=== PATIENT | female | born 1955 | race Caucasian/White ===

== ENCOUNTER 2019-07-15 10:13 | Observation (INO) ==
[2019-07-15] MEDS ORDERED: Naloxone 0.4 MG/ML INJ IVP PRN (13:54)
--- NOTE | 2019-07-15 14:15 | Internal Med History&Physical ---
<Nabil Sommer - Last Filed: 07/15/19 15:29> Date of Encounter: 07/15/19 Time of Encounter: 15:00 Internal Medicine - H&P: HPI History of present illness: Ms. Hutchinson is a 64 year old female Past Med Surg Social Fam HX - Family History Father Living Status: Age at : 70 Cause of : brain cancer Hx Family Cancer: Yes Hx Family Medical Disorders: Yes Internal Medicine - H&P: Meds Albuterol Sulfate [Ventolin Hfa] 2 puff IH Q4H 07/15/19 [History] Aspirin [Adult Aspirin] 81 mg PO DAILY 07/15/19 [History] Atorvastatin [Lipitor] 40 mg PO HS 07/15/19 [History] Carvedilol [Coreg] 12.5 mg PO BID 07/15/19 [History] Clopidogrel [Plavix] 75 mg PO DAILY 07/15/19 [History] Cyclobenzaprine [Flexeril] 10 mg PO HS 07/15/19 [History] Fluticasone/Umeclidin/Vilanter [Trelegy Ellipta 100-62.5-25] 1 puff IH DAILY 07/15/19 [History] Folic Acid 800 mg PO DAILY 07/15/19 [History] Gabapentin [Neurontin] 300 mg PO TID 07/15/19 [History] Ipratropium/Albuterol Neb [Duoneb] 3 ml IH Q4HR PRN 07/15/19 [History] Isosorbide MONOnitrate [Isosorbide Mononitrate ER] 30 mg PO DAILY 07/15/19 [History] Lisinopril [Zestril] 10 mg PO DAILY 07/15/19 [History] Loratadine [Allergy Relief] 10 mg PO DAILY 07/15/19 [History] Meloxicam [Mobic] 7.5 mg PO DAILY 07/15/19 [History] Metformin HCl 1,000 mg PO BID 07/15/19 [History] Multivitamin [Multivitamins] 1 each PO DAILY 07/15/19 [History] SitaGLIPtin [Januvia] 100 mg PO DAILY 07/15/19 [History] Allergy/AdvReac Type Severity Reaction Status Date / Time No Known Allergies Allergy Verified 07/15/19 05:09 All Systems PM: A 10-system review of systems was performed and is negative for pertinent findings except as documented above in the HPI. - Constitutional Vitals: Temp Pulse Resp BP Pulse Ox 98.3 F 115 16 143/61 90 07/15/19 11:24 07/15/19 14:18 07/15/19 14:18 07/15/19 14:18 07/15/19 14:18 - Time Spent With Patient Total time spent is greater than 50% in coordination of care (as documented) at patient's floor/unit and/or counseling patient: - Attending Attestation I saw evaluated and examined this patient and reviewed past medical, family, social histories and objective data including labs, imaging studies and EKG and my medical decision-making was reviewed with the Resident Physician, Coleen Bennett. I agree with the documented findings, disposition and treatment plan as described except to any changes set forth below. We independently had [id number] contact with the patient. 64-year-old female patient with history of coronary artery disease status post stents, COPD and chronic respiratory failure who presented to the ER with complaints of worsening cough, shortness of breath and pleuritic chest pain that has been getting worse especially since 2 AM this morning. She was hospitalized at a different facility earlier this month and discharged home on a steroid taper. It is unclear if she was on antibiotics then. She was seen in [facility] ER today and as her troponins were rising up, she was transferred here for higher level of care. She did receive a dose of Lovenox. For possible non-ST elevation WI. Patient continues to have intermittent pleuritic chest pain worsens with cough. She also describes brownish sputum. Troponins trended up to 0.38 at [place]. We will continue to trend troponins. Telemetry monitoring. Treat for possible non-ST elevation WI with Lovenox. Obtain 2-D echocardiogram. Consult cardiology. Check lipid profile. Also treat patient for COPD exacerbation with bronchodilators. Will use the albuterol plus Spiriva given that patient has persistent tachycardia. Systemic steroids. Azithromycin and O2 supplementation. Past history per medical record shows that she has a history of atrial fibrillation but patient denies this. She is not on any anticoagulation. We will resume her usual home meds. For her diabetes will place her on sliding scale insulin. Monitor blood sugars closely especially as she will be receiving steroids. Adjust insulin regimen accordingly. Patient has high risk for complications. <Coleen Bennett E - Last Filed: 07/15/19 17:07> Date of Encounter: 07/15/19 Internal Medicine - H&P: HPI Chief complaint: Shortness of breath Admitted From: Emergency Dept Plans for Post Hospital Care: Home History of present illness: Ms. Hutchinson is a 64 year old female who is admitted from the ED. Patient states beginning of June she was hospitalized for 3 days for shortness of breath and placed on prednisone. She states she went home and was feeling quite a bit better although needing to use her oxygen continuously at 2 L. The last 2-3 days she had increased shortness of breath increased oxygen demands as well as production that was brown in color. She states that her shortness of breath got so bad last night that she had difficulty ambulance. Patient has a history of WI in 2004, 5 stent placements, coronary artery disease, possible A. fib currently on Coreg, hypertension currently on lisinopril, diabetes on metformin and Januvia, COPD, use of oxygen prior to last hospitalization was 2 L as needed and at night, hypercholesterolemia on atorvastatin. Patient denies any kidney disease or thyroid disease. Patient is currently trying to quit smoking and using a nicotine patch low-dose. Initial troponin 0.0 9 repeat 0.38 and latest troponin 0.90. Patient was given 70 mg of Lovenox in ED. Labs on admission showed white blood cell count of 14.2, hemoglobin 11.8, hematocrit 35.9, platelet count of 303, sodium 129, potassium 4.1, chloride 94, CO2 of 26, BUN of 9, creatinine of 0.54, GFR greater than 60, glucose of 1:30 3 repeat troponin of 0.09, BNP of 68. EKG showed left jugular hypertrophy with IVCD, LAD and secondary repull abnormalities. Repeat EKG ordered. Patient was seen and examined at bedside in moderate distress. She states that her chest pain is only when she coughs and radiates to her back. She denies any abdominal pain, nausea, vomiting, but she does report fever, sweats, chills, shortness of breath, cough, brownish sputum. Patient states multiple relatives with heart disease when asked who patient repl ied everyone. Past Med Surg Social Fam HX - Past Medical History Medical history: asthma, atrial fibrillation, CHF, COPD, diabetes, hy perlipidemia, hypertension, myocardial infarction Psychiatric history: anxiety, depression - Past Surgical History Additional surgical history: lung biospy - Social History Smoking Status: Current every day smoker Smokeless Tobacco Status: No Alcohol use: none Drug use: none All Systems PM: A 10-system review of systems was performed and is negative for pertinent findings except as documented above in the HPI. - Constitutional Constitutional: chills, fatigue, fever(s), no anorexia - EENT Eyes: no change in vision - Cardiovascular Cardiovascular ROS IM: chest pain (With cough), dyspnea, no palpitations, no syncope - Respiratory Respiratory: cough, excessive phlegm production (The last 3 days), change in phlegm color (Brownish) - Gastrointestinal Gastrointestinal: no abdominal pain, no nausea, no vomiting - Genitourinary Genitourinary: no urinary frequency, no urinary hesitancy, no urinary urgency - Musculoskeletal Musculoskeletal ROS IM: no muscle weakness, no myalgias - Integumentary Integumentary IM: no new lesions, no rash - Neurological Neurological ROS: no confusion, no frequent falls, no headache(s) - Constitutional Vitals: Temp Pulse Resp BP Pulse Ox 98.3 F 117 22 144/78 93 07/15/19 11:24 07/15/19 11:24 07/15/19 11:24 07/15/19 11:24 07/15/19 11:24 Exam: General: AAO 3, answers questions appropriately, moderate distress Head: normocephalic, atraumatic Eyes: HERNANDO, no icterus Cardio: RRR, no murmurs, rubs, or gallops Respiratory: End expiratory wheeze noted throughout, no rhonchi or rales Abd: normal bowel sounds, no gaurding or rigidity Extremities: no pedal edema, pulses equal bilaterally, warm Neuro: CN II-XII no focal deficit Psych: normal mood, normal affect Skin: warm, dry, intact - Assessment and Plan (1) Non-STEMI (non-ST elevated myocardial infarction) Current Visit: Yes Status: Acute Assessment and plan: Troponin increased from 0.09-0.38-0.90 EKG showed no changes at ED Repeat EKG ordered Echocardiogram ordered Cardiology has been consulted Lovenox started 70 mg twice daily Continue to monitor Continue to use telemetry (2) Hypertension Current Visit: Yes Status: Chronic Assessment and plan: Currently well controlled on current medications Continue Coreg, Lisinopril, Imdur Qualifiers: Hypertension type: essential hypertension Qualified Code(s): I10 - Essential (primary) hypertension (3) Hypercholesterolemia Current Visit: Yes Status: Chronic Assessment and plan: Continue home atorvastatin (4) Tobacco dependence Current Visit: Yes Status: Acute Assessment and plan: Patient down to 1-4 cigarettes per day Nicotine patch if needed for cravings (5) History of WI (myocardial infarction) Current Visit: Yes Status: Acute Assessment and plan: Previous WI in 2004 History of 5 stents placed (6) Acute exacerbation of chronic obstructive airways disease Current Visit: No Status: Acute Assessment and plan: COPD exacerbation Likely secondary to bronchitis Prednisone 40 mg by mouth daily for 5 days Azithromycin for 5 days Oxygen as needed to keep oxygen saturation above 88% We have albuterol every 4 hours, Spiriva once daily Continue to monitor (7) Elevated troponin Current Visit: No Status: Acute Assessment and plan: Likely secondary to NSTEMI Please see NSTEMI (8) Hyponatremia Current Visit: Yes Status: Acute Assessment and plan: Likely secondary to dehydration Start IV normal saline 75 mL per hour for 1 back Continue to monitor electrolytes and replace as necessary (9) Diabetes mellitus Current Visit: Yes Status: Chronic Assessment and plan: Low-dose sliding scale insulin Hold metformin and Januvia Qualifiers: Diabetes mellitus type: type 2 Diabetes mellitus group home insulin use: 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
[2019-07-15] MEDS ORDERED: Ipratropium/Albuterol Neb 3 ML IH PRN (14:23)
[2019-07-15] MEDS ORDERED: 0.9 % Sodium Chloride 1,000 ML IVC SCH (15:15)
[2019-07-15] MEDS ORDERED: Levalbuterol Neb 0.63 MG/3 ML ONE (15:58)
[2019-07-15] MEDS: Levalbuterol Neb 0.63 MG/3 ML IH SCH ×2 (16:04→21:44)
[2019-07-15] MEDS ORDERED: Dextrose Gel 15 GM/37.5 ML TUBE PO PRN ×2 (17:08)
[2019-07-15] MEDS ORDERED: D5% in Water 1,000 ML IVC PRN (17:08)
[2019-07-15] MEDS ORDERED: *HR* Dextrose 50 % in Water (Syg) 50 ML SYRINGE IVP PRN (17:08)
[2019-07-15 17:30] LABS: Estimated Average Glucose 154 mg/dl
[2019-07-15] MEDS: Azithromycin 250 MG TABLET PO SCH (18:01)
[2019-07-15] MEDS: *HR* Enoxaparin 80 MG/0.8 ML SYRINGE SQ SCH (18:16)
[2019-07-15] MEDS: Gabapentin 300 MG CAPSULE PO SCH (20:00)
[2019-07-15] MEDS ORDERED: Perflutren Lipid Microsphere 1.3 ML in 0.9 % Sodium Chloride 8.7 ML IVP ONE (21:00)
[2019-07-15] MEDS: Insulin LISPRO 300 UNITS/3 ML VIAL SQ SCH (21:27)
[2019-07-16] MEDS: Insulin LISPRO 300 UNITS/3 ML VIAL SQ SCH ×4 (01:30→21:53)
[2019-07-16 02:14] LABS: Basophils % 0.1 %; Eosinophils # 0.1 K/mcL (0.0-0.6); Eosinophils % 0.7 %; Hematocrit 33.9 % (35.3-44.9); Hemoglobin 11.2 g/dL (11.5-15.4); Immature Granulocytes % 0.3 % (0-4); Lymphocytes # 1.7 K/mcL (0.6-4.6); Lymphocytes % 18.7 %; Mean Corpuscular Hemoglobin 29.5 pg (28.0-33.3); Mean Corpuscular Volume 89.2 fL (83.0-100.0); Mean Platelet Volume 8.8 fL (9.4-12.4); Monocytes # 0.9 K/mcL (0.0-1.3); Neutrophils # 6.3 K/mcL (1.6-8.9); Platelet Count 303 K/mcL (140-400); Segmented Neutrophils % 70.2 %
[2019-07-16 02:35] LABS: Alanine Aminotransferase 13 Units/L (7-52); Albumin 3.9 g/dL (3.5-5.7); Albumin/Globulin Ratio 1.6 (1.1-2.2); Alkaline Phosphatase 44 Units/L (34-104); Aspartate Amino Transferase 17 Units/L (13-39); BUN/Creatinine Ratio 20 (6-26); Bilirubin,Total 0.3 mg/dL (0.3-1.0); Blood Urea Nitrogen 11 mg/dL (8-23); Calcium 9.1 mg/dL (8.6-10.3); Carbon Dioxide 26 mEq/L (23-29); Chloride 99 mEq/L (98-107); Cholesterol 198 mg/dL (< 200); Globulin 2.4 g/dL (2.4-3.5); Glucose 131 mg/dL (70-105); HDL Cholesterol 40 mg/dL (40-59); LDL Cholesterol,Calculated 120 mg/dL (0-99); Osmolality,Calculated 279 (280-300); Potassium 3.9 mEq/L (3.5-5.1); Sodium 134 mEq/L (136-145); Total Protein 6.3 g/dL (6.4-8.9); Triglycerides 189 mg/dL (< 150); eGFR For African Americans > 60 (> 60); eGFR For Non-African Americans > 60 (> 60)
[2019-07-16] MEDS: Levalbuterol Neb 0.63 MG/3 ML IH SCH ×4 (03:35→21:42)
[2019-07-16] MEDS: *HR* Enoxaparin 80 MG/0.8 ML SYRINGE SQ SCH ×2 (06:41→21:53)
--- NOTE | 2019-07-16 09:45 | Cardiology Consult Note ---
Date of Encounter: 07/16/19 Time of Encounter: 08:15 Assessment and Plan (1) Non-STEMI (non-ST elevated myocardial infarction) Current Visit: Yes Status: Acute Troponins 0.9, 1.05, 0.68. On therapeutic Lovenox. Denies CP at time of eval. States CP is aching, left sided and radiates to her back when coughing, subsides when not coughing. Poor historian, cannot recall information regarding previous reported cardiac stents. Echo 07/15/19: LVEF 45%, moderate AR, apex wall hypokinetic. No previous echo to compare. EKG: NSR with non-specific ST-T changes in lateral leads. Given peak troponin of 1.05, would recommend [facility] tomorrow. (2) Coronary artery disease Current Visit: Yes Status: Chronic Per patient, has a history of multiple cardiac stents but is unclear where/when. 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 PPD smoker, has gradually decreased over the past month. Last cigarette was Monday. Ordered home Nicotine patch dose. Encouraged continued cessation. Continue current medications: ASA, Plavix, Lipitor, Coreg, Lisinopril & Imdur. See above for complete plan. Qualifiers: Coronary Disease-Associated Artery/Lesion type: [place] artery [place] vs. transplanted heart: [place] heart Associated angina: with unspecified angina Qualified Code(s): I25.119 - Atherosclerotic heart disease of [place] coronary artery with unspecified angina pectoris (3) Cardiomyopathy Current Visit: Yes Status: Acute Given elevated troponin and reported hx of CAD, suspect ischemic. EF 45% per echo this admission, no previous study to compare. Plan and medications as above. Qualifiers: Cardiomyopathy type: unspecified Qualified Code(s): I42.9 - Cardiomyopathy, unspecified Discussion w patient/family: The assessment and plan as outlined above was discussed with the patient and/or family members who expressed understanding and agreement. All questions were answered. Thank you for involving us in the care of your patient. Please call with any questions. Will discuss above assessment and plan as above with Dr. Booth and makes changes as appropriate. History of Present Illness Consult date: 07/16/19 Consult reason: NSTEMI History of present illness: Ms. Hutchinson is a 64 year old female with PMH of CAD, DM and COPD admitted from the ED yesterday for worsening cough, SOB and pleuritic CP. 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 No records to review. Reports she was hospitalized for 3 days for SOB earlier this month and discharged on prednisone and O2. She states she went home and was feeling quite a bit better although needing to use her oxygen continuously at 2-4L. Was smoking PPD up until last week, is now using Nicotine patches, last cigarette Monday. The last 2-3 days she had increased SOB and sputum production. States that her SOB got so bad last night that she had difficulty calling the ambulance, feels it is due to "overd oing it in the garden." Reports her CP occurs when coughing, is left sided and travels to her back and goes away when she is done coughing. Denies N/V and edema. Past Med Surg Social Fam HX - Past Medical History Medical history: asthma, atrial fibrillation, CHF, COPD, coronary artery disease, diabetes, hyperlipidemia, hypertension, myocardial infarction Psychiatric history: anxiety, depression - Past Surgical History Additional surgical history: lung biospy. [facility] w/ stents - Social History Smoking Status: Current some day smoker Packs per day: 4 days without Smokeless Tobacco Status: No Alcohol use: none Drug use: none - Family History Father Living Status: Age at : 70 Cause of : brain cancer Hx Family Cancer: Yes Hx Family Medical Disorders: Yes Medications and Allergies Albuterol Sulfate [Ventolin Hfa] 2 puff IH Q4H 07/15/19 [History] Aspirin [Adult Aspirin] 81 mg PO DAILY 07/15/19 [History] Atorvastatin [Lipitor] 40 mg PO HS 07/15/19 [History] Carvedilol [Coreg] 12.5 mg PO BID 07/15/19 [History] Clopidogrel [Plavix] 75 mg PO DAILY 07/15/19 [History] Cyclobenzaprine [Flexeril] 10 mg PO HS 07/15/19 [History] Fluticasone/Umeclidin/Vilanter [Trelegy Ellipta 100-62.5-25] 1 puff IH DAILY 07/15/19 [History] Folic Acid 800 mg PO DAILY 07/15/19 [History] Gabapentin [Neurontin] 300 mg PO TID 07/15/19 [History] Ipratropium/Albuterol Neb [Duoneb] 3 ml IH Q4HR PRN 07/15/19 [History] Isosorbide MONOnitrate [Isosorbide Mononitrate ER] 30 mg PO DAILY 07/15/19 [History] Lisinopril [Zestril] 10 mg PO DAILY 07/15/19 [History] Loratadine [Allergy Relief] 10 mg PO DAILY 07/15/19 [History] Meloxicam [Mobic] 7.5 mg PO DAILY 07/15/19 [History] Metformin HCl 1,000 mg PO BID 07/15/19 [History] Multivitamin [Multivitamins] 1 each PO DAILY 07/15/19 [History] SitaGLIPtin [Januvia] 100 mg PO DAILY 07/15/19 [History] Allergy/AdvReac Type Severity Reaction Status Date / Time No Known Allergies Allergy Verified 07/15/19 05:09 All Systems Review: The remainder of the systems were reviewed and are negative - Cardiovascular Cardiovascular: as per HPI, dyspnea on exertion, no leg edema - Respiratory Respiratory: cough, dyspnea Physical Examination Vital Signs, Last 4 Hours Temp Pulse Resp BP Pulse Ox 07/16/19 07:31 98.1 F 97 20 136/62 96 General: Conversant, No Apparent Distress HEENT: Atraumatic, Normocephaly, Mucus Membranes Moist Neck: No JVD Cardiac: Reg Rate and Rhythm, Normal S1 and S2 Lungs: Other (Rhonchi auculatated bilaterally) Neuro: Alert and responsive, No focal deficits noted Extremities: No Clubbing, No Cyanosis, No Edema, Normal Pulses Results 07/16/19 02:02 07/16/19 02:02 Lab Results 07/15/19 07/15/19 07/16/19 15:57 20:00 02:02 WBC Hgb Hct Plt Count Sodium Potassium Chloride Carbon Dioxide BUN Creatinine Glucose Calcium Total Bilirubin AST ALT Alkaline Phosphatase Troponin I 0.90 H* 1.05 H* 0.68 H* 07/16/19 07/16/19 07/16/19 02:02 02:02 08:31 WBC 9.0 Hgb 11.2 L Hct 33.9 L Plt Count 303 Sodium 134 L Potassium 3.9 Chloride 99 Carbon Dioxide 26 BUN 11 Creatinine 0.56 L Glucose 131 H Calcium 9.1 Total Bilirubin 0.3 AST 17 ALT 13 Alkaline Phosphatase 44 Troponin I 0.56 H* Active Medications Aspirin (Aspirin Ec) 81 mg PO DAILY [facility] Stop: 01/15/20 09:01 Atorvastatin Calcium (Lipitor) 40 mg PO HS [facility] Stop: 01/14/20 21:01 Last Admin: 07/15/19 20:00 Dose: 40 mg Documented by: Azithromycin (Zithromax) 250 mg PO Q24H [facility] Stop: 01/14/20 17:01 Last Admin: 07/15/19 18:01 Dose: 250 mg Documented by: Carvedilol (Coreg) 12.5 mg PO BIDWM [facility]; Protocol Stop: 01/14/20 17:01 Last Admin: 07/15/19 18:01 Dose: 12.5 mg Documented by: Dextrose/Water (Dextrose 50% (Syg)) 25 ml IVP AD PRN PRN Reason: Hypoglycemia Stop: 01/14/20 17:09 Enoxaparin Sodium (Lovenox) 70 mg SQ Q12HCO [facility]; Protocol Stop: 01/14/20 18:01 Last Admin: 07/16/19 06:41 Dose: 70 mg Documented by: Gabapentin (Neurontin) 300 mg PO TID [facility] Stop: 01/14/20 21:01 Last Admin: 07/15/19 20:00 Dose: 300 mg Documented by: Glucagon (Glucagen) 1 mg IM ONCE PRN PRN Reason: Hypoglycemia Stop: 01/14/20 17:09 Glucose (Gluctose) 15 gm PO ONCE PRN PRN Reason: Hypoglycemia Stop: 01/14/20 17:09 Glucose (Gluctose) 30 gm PO ONCE PRN PRN Reason: Hypoglycemia Stop: 01/14/20 17:09 Guaifenesin (Robitussin/Dm) 10 ml PO Q6HR PRN PRN Reason: Cough Stop: 01/14/20 14:24 Last Admin: 07/15/19 14:58 Dose: 10 ml Documented by: Dextrose (Dextrose 5%) 1,000 mls @ 100 mls/hr IVC .Q10H PRN PRN Reason: HYPOGLYCEMIA Stop: 01/14/20 17:09 Insulin Human Lispro (Humalog) 0 units SQ Q6HR [facility]; Protocol Stop: 01/14/20 18:01 Last Admin: 07/16/19 06:41 Dose: Not Given Documented by: Isosorbide Mononitrate (Imdur) 30 mg PO DAILY [facility] Stop: 01/15/20 09:01 Levalbuterol HCl (Xopenex) 0.63 mg IH [id number] [facility] Stop: 01/14/20 16:01 Last Admin: 07/16/19 03:35 Dose: 0.63 mg Documented by: Lisinopril (Zestril) 10 mg PO DAILY [facility]; Protocol Stop: 01/15/20 09:01 Loratadine (Claritin) 10 mg PO DAILY [facility]; Protocol Stop: 01/15/20 09:01 Naloxone HCl (Narcan) 0.4 mg IVP Q2MPRN PRN PRN Reason: SEE COMMENTS Stop: 01/14/20 13:55 Nicotine (Nicoderm) 21 mg TD DAILY [facility]; Protocol Stop: 01/15/20 10:01 Prednisone (Prednisone) 40 mg PO DAILY [facility] Stop: 01/15/20 09:01 Tiotropium [place] (Spiriva) 18 mcg IH DAILY@0700 [facility] Stop: 01/15/20 07:01 Impressions Echocardiogram 07/15/19 15:14 Impressions: LVEF 45%. Indeterminate diastolic function. Normal right ventricular structure and function. Moderate aortic regurgitation. Moderate mitral annular calcification Unable to estimate RVSP due to lack of TR jet. Left Ventricular Wall Motion: Rest Echo Findings The apex wall was hypokinetic. All other wall segments showed normal motion. Findings: Study Quality * Technically adequate exam. ECG Findings * Normal sinus rhythm. Left Ventricle * LVEF 45%. * Normal LV chamber size, wall thickness. * Indeterminate diastolic function. * There is no LV thrombus. * Definity echo contrast was used. * Mild segmental left ventricular systolic dysfunction. Right Ventricle * Normal right ventricular structure and function. Left Atrium * Normal left atrial size. Right Atrium * Normal right atrial size. Aortic Valve * Trileaflet aortic valve. * Moderate aortic regurgitation. * No aortic stenosis. * Normal aortic valve structure. Mitral Valve * Moderate mitral annular calcification * No mitral stenosis. * Trace mitral regurgitation. Interatrial Septum * Interatrial septum not well evaluated. Tricuspid Valve * Trace tricuspid regurgitation. * Unable to estimate RVSP due to lack of TR jet. * No tricuspid stenosis. * Normal tricuspid valve structure. Pulmonic Valve * Pulmonic valve not well visualized. Aorta * Normally sized aortic root. Pericardium * The pericardium appears normal. IVC * Normal IVC dimensions and inspiratory collapse. Pulmonary Artery * Normal visualized portions of the main pulmonary artery. - Imaging and Cardiology Chest Xray: report reviewed Echo: report reviewed Other Results: 12hr tele reviewed: average HR 93, NSR, no events noted - EKG Interpretation EKG results cardiology: personally reviewed (Non-specific ST-T changes in lateral leads), sinus rhythm Consult Discharge Plan - Plan Referrals: NONE,PCP [Primary Care Provider] - HAS-BLED Score - Score Medication usage predisposing to bleeding: Antiplatelet agents, NSAIDs, Anticoagulants Score: 1
[2019-07-16] MEDS: Tiotropium 18 MCG inhalation IH SCH (10:10)
[2019-07-16] MEDS: Lisinopril 20 MG TABLET PO SCH (11:59)
[2019-07-16] MEDS: predniSONE 20 MG TABLET PO SCH (11:59)
[2019-07-16] MEDS: Isosorbide MONOnitrate (24 HR) 30 MG TAB.ER.24H PO SCH (11:59)
[2019-07-16] MEDS: Gabapentin 300 MG CAPSULE PO SCH ×3 (11:59→21:57)
[2019-07-16] MEDS: Loratadine 10 MG TABLET PO SCH (11:59)
[2019-07-16] MEDS: Aspirin Enteric Coated 81 MG Tablet PO SCH (11:59)
[2019-07-16] MEDS: Nicotine 21 MG PATCH.TD24 TD SCH (12:05)
--- NOTE | 2019-07-16 14:14 | Internal Med Progress Note ---
<Nabil Sommer - Last Filed: 07/16/19 16:09> Hospitalist Progress Note - Encounter Date of Encounter: 07/16/19 Time of Encounter: 16:09 - Exam Vitals: Temp Pulse Resp BP Pulse Ox 98.3 F 84 18 148/66 98 07/16/19 11:35 07/16/19 11:35 07/16/19 15:26 07/16/19 11:35 07/16/19 15:26 - Time Spent with Patient Total time spent is greater than 50% in coordination of care (as documented) at patient's floor/unit and/or counseling patient: Internal Medicine: Result - Labs CBC & Chem 7: 07/16/19 02:02 07/16/19 02:02 Labs: Short CBC 07/16/19 Range/Units 02:02 WBC 9.0 (4.3-11.1) K/mcL Hgb 11.2 L (11.5-15.4) g/dL Hct 33.9 L (35.3-44.9) % Plt Count 303 (140-400) K/mcL Neutrophils # 6.3 (1.6-8.9) K/mcL BMP 07/16/19 02:02 Sodium 134 L Potassium 3.9 Chloride 99 Carbon Dioxide 26 BUN 11 Creatinine 0.56 L Glucose 131 H Calcium 9.1 Cardiac Enzymes 07/15/19 07/15/19 07/16/19 Range/Units 15:57 20:00 02:02 Troponin I 0.90 H* 1.05 H* 0.68 H* (< 0.04) ng/mL 07/16/19 Range/Units 08:31 Troponin I 0.56 H* (< 0.04) ng/mL Liver Function 07/16/19 Range/Units 02:02 Total Bilirubin 0.3 (0.3-1.0) mg/dL AST 17 (13-39) Units/L ALT 13 (7-52) Units/L Alkaline Phosphatase 44 (34-104) Units/L Albumin 3.9 (3.5-5.7) g/dL - Impressions Impressions Echocardiogram 07/15/19 15:14 Impressions: LVEF 45%. Indeterminate diastolic function. Normal right ventricular structure and function. Moderate aortic regurgitation. Moderate mitral annular calcification Unable to estimate RVSP due to lack of TR jet. Left Ventricular Wall Motion: Rest Echo Findings The apex wall was hypokinetic. All other wall segments showed normal motion. Findings: Study Quality * Technically adequate exam. ECG Findings * Normal sinus rhythm. Left Ventricle * LVEF 45%. * Normal LV chamber size, wall thickness. * Indeterminate diastolic function. * There is no LV thrombus. * Definity echo contrast was used. * Mild segmental left ventricular systolic dysfunction. Right Ventricle * Normal right ventricular structure and function. Left Atrium * Normal left atrial size. Right Atrium * Normal right atrial size. Aortic Valve * Trileaflet aortic valve. * Moderate aortic regurgitation. * No aortic stenosis. * Normal aortic valve structure. Mitral Valve * Moderate mitral annular calcification * No mitral stenosis. * Trace mitral regurgitation. Interatrial Septum * Interatrial septum not well evaluated. Tricuspid Valve * Trace tricuspid regurgitation. * Unable to estimate RVSP due to lack of TR jet. * No tricuspid stenosis. * Normal tricuspid valve structure. Pulmonic Valve * Pulmonic valve not well visualized. Aorta * Normally sized aortic root. Pericardium * The pericardium appears normal. IVC * Normal IVC dimensions and inspiratory collapse. Pulmonary Artery * Normal visualized portions of the main pulmonary artery. Consult Discharge Plan - Plan Referrals: NONE,PCP [Primary Care Provider] - - Attending Attestation I saw evaluated and examined this patient and reviewed objective data including labs and my medical decision-making was reviewed with the Resident Physician, Coleen Bennett. I agree with the documented findings, disposition and treatment plan as described except to any changes set forth below. We independently had [id number] contact with the patient. Patient not having chest pain at this time but occasionally continues to have it with cough. Has been nothing by mouth overnight. Receiving subcutaneous Lovenox for non-ST elevation OH. Evaluated by cardiology and recommended left heart catheterization. Will obtain records from [facility] regarding last heart catheterization and echocardiogram results. Echocardiogram done here showed EF of 45% with moderate aortic regurgitation. Regarding her COPD, continue bronchodilators and steroids. Continue azithromycin to complete 5 day treatment course. Patient had been hospitalized at [facility] earlier this month for similar episode of COPD and was discharged on doxycycline and prednisone taper which she completed one week back. Continue bronchodilators. <Coleen Bennett - Last Filed: 07/16/19 16:36> Hospitalist Progress Note - Encounter Date of Encounter: 07/16/19 Time of Encounter: 10:00 - Subjective Interval History: Ms. Hutchinson is a 64 year old female initially admitted for chest pain, shortness of breath, elevated troponin. Previous history of recent hospitalization for COPD exacerbation. Seen by cardiology this plan for left heart catheter tomorrow. Patient was seen and examined at bedside today. Patient was in no acute distress. She states that she is still having shortness of breath and cough with increased sputum production. She states he still has chest pain but only when she has coughing spells. She denies any abdominal pain, nausea, vomiting, diarrhea, pain other than chest pain with cough. - Exam Vitals: Temp Pulse Resp BP Pulse Ox 98.3 F 84 18 148/66 97 07/16/19 11:35 07/16/19 11:35 07/16/19 11:35 07/16/19 11:35 07/16/19 11:35 Exam: General: AAO 3, answers questions appropriately, mild distress Head: normocephalic, atraumatic Eyes: HERNANDO, no icterus Cardio: RRR, no murmurs, rubs, or gallops Respiratory: End expiratory wheeze noted throughout, no rhonchi or rales Abd: normal bowel sounds, no guarding or rigidity Extremities: no pedal edema, pulses equal bilaterally, warm Skin: warm, dry, intact - Assessment and Plan (1) Non-STEMI (non-ST elevated myocardial infarction) Current Visit: Yes Status: Acute Assessment and Plan: Troponin increased from 0.09-0.38-0.90- 1.05-0.68-0.56 EKG showed normal sinus rhythm with nonspecific ST-T wave changes in the lateral leads Echo showed LVEF of 45% moderate aortic valve regurgitation, apex wall hypokinetic Cardiology has been consulted Plan for left heart catheter tomorrow Lovenox 70 mg twice daily Continue to monitor Continue to use telemetry (2) Hypertension Current Visit: Yes Status: Chronic Assessment and Plan: Currently well controlled on current medications Continue Coreg, Lisinopril, Imdur (3) Hypercholesterolemia Current Visit: Yes Status: Chronic Assessment and Plan: Continue home atorvastatin (4) Tobacco dependence Current Visit: Yes Status: Acute Assessment and Plan: Patient down to 1-4 cigarettes per day Nicotine patch if needed for cravings (5) History of OH (myocardial infarction) Current Visit: Yes Status: Chronic Assessment and Plan: Previous OH in 2004 History of 5 stents placed (6) Acute exacerbation of chronic obstructive airways disease Current Visit: No Status: Acute Assessment and Plan: COPD exacerbation Likely secondary to bronchitis Prednisone 40 mg by mouth daily for 5 days Azithromycin for 5 days Oxygen as needed to keep oxygen saturation above 88% We have albuterol every 4 hours, Spiriva once daily Appetite is Symbicort 160 g 2 puffs twice daily Continue to monitor (7) Elevated troponin Current Visit: No Status: Acute Assessment and Plan: Likely secondary to NSTEMI Please see NSTEMI Intervention scheduled for tomorrow per cardiology (8) Hyponatremia Current Visit: Yes Status: Resolved Assessment and Plan: Was likely secondary to dehydration One bag of IV normal saline was given yesterday Continue to monitor electrolytes and replace as necessary (9) Diabetes mellitus Current Visit: Yes Status: Chronic Assessment and Plan: Low-dose sliding scale insulin Hold metformin and Januvia DVT Prophylaxis: Lovenox - Time Spent with Patient Total time spent is greater than 50% in coordination of care (as documented) at patient's floor/unit and/or counseling patient: Internal Medicine: Result - Labs CBC & Chem 7: 07/16/19 02:02 07/16/19 02:02 Labs: Short CBC 07/16/19 Range/Units 02:02 WBC 9.0 (4.3-11.1) K/mcL Hgb 11.2 L (11.5-15.4) g/dL Hct 33.9 L (35.3-44.9) % Plt Count 303 (140-400) K/mcL Neutrophils # 6.3 (1.6-8.9) K/mcL BMP 07/16/19 02:02 Sodium 134 L Potassium 3.9 Chloride 99 Carbon Dioxide 26 BUN 11 Creatinine 0.56 L Glucose 131 H Calcium 9.1 Cardiac Enzymes 07/15/19 07/15/19 07/16/19 Range/Units 15:57 20:00 02:02 Troponin I 0.90 H* 1.05 H* 0.68 H* (< 0.04) ng/mL 07/16/19 Range/Units 08:31 Troponin I 0.56 H* (< 0.04) ng/mL Liver Function 07/16/19 Range/Units 02:02 Total Bilirubin 0.3 (0.3-1.0) mg/dL AST 17 (13-39) Units/L ALT 13 (7-52) Units/L Alkaline Phosphatase 44 (34-104) Units/L Albumin 3.9 (3.5-5.7) g/dL - Impressions Impressions Echocardiogram 07/15/19 15:14 Impressions: LVEF 45%. Indeterminate diastolic function. Normal right ventricular structure and function. Moderate aortic regurgitation. Moderate mitral annular calcification Unable to estimate RVSP due to lack of TR jet. Left Ventricular Wall Motion: Rest Echo Findings The apex wall was hypokinetic. All other wall segments showed normal motion. Findings: Study Quality * Technically adequate exam. ECG Findings * Normal sinus rhythm. Left Ventricle * LVEF 45%. * Normal LV chamber size, wall thickness. * Indeterminate diastolic function. * There is no LV thrombus. * Definity echo contrast was used. * Mild segmental left ventricular systolic dysfunction. Right Ventricle * Normal right ventricular structure and function. Left Atrium * Normal left atrial size. Right Atrium * Normal right atrial size. Aortic Valve * Trileaflet aortic valve. * Moderate aortic regurgitation. * No aortic stenosis. * Normal aortic valve structure. Mitral Valve * Moderate mitral annular calcification * No mitral stenosis. * Trace mitral regurgitation. Interatrial Septum * Interatrial septum not well evaluated. Tricuspid Valve * Trace tricuspid regurgitation. * Unable to estimate RVSP due to lack of TR jet. * No tricuspid stenosis. * Normal tricuspid valve structure. Pulmonic Valve * Pulmonic valve not well visualized. Aorta * Normally sized aortic root. Pericardium * The pericardium appears normal. IVC * Normal IVC dimensions and inspiratory collapse. Pulmonary Artery * Normal visualized portions of the main pulmonary artery. <Coleen Bennett - Last Filed: 07/16/19 16:36> (2) Hypertension Qualifiers: Hypertension type: essential hypertension Qualified Code(s): I10 - Essential (primary) hypertension (9) Diabetes mellitus Qualifiers: Diabetes mellitus type: type 2 Diabetes mellitus halfway insulin use: without halfway use Diabetes mellitus complication status: without complication Qualified Code(s): E11.9 - Type 2 diabetes mellitus without complications
[2019-07-16] MEDS: Budesonide/Formoterol 160/4.5 1 PUFF INH IH SCH ×2 (15:17→21:42)
--- NOTE | 2019-07-16 15:54 | Electrocardiograph Report ---
[address] [address] Test Date: 2019-07-15 Pat Name: Emi Hutchinson Department: 111 Room: 2NE20 Gender: F Stiff Leg Operator: : [id number] Requested By: Coleen Bennett Order Number: [id number] Reading MD: Partha Byrd Measurements Intervals [place] Rate: 111 P: 74 SC: 162 QRS: -39 QRSD: 84 T: -17 QT: 329 QTc: 394 Interpretive Statements SINUS TACHYCARDIA MARKED LEFT AXIS DEVIATION MODERATE VOLTAGE CRITERIA FOR LVH, CONSIDER NORMAL VARIANT POSSIBLE SEPTAL MYOCARDIAL INFARCTION, OF INDETERMINATE AGE Electronically Signed On 07-16-2019 15:53:17 EDT by Partha Byrd
[2019-07-16] MEDS: Azithromycin 250 MG TABLET PO SCH (18:15)
[2019-07-17] MEDS: Insulin LISPRO 300 UNITS/3 ML VIAL SQ SCH ×5 (00:30→23:59)
[2019-07-17] MEDS: Levalbuterol Neb 0.63 MG/3 ML IH SCH ×4 (04:09→21:46)
[2019-07-17] MEDS: *HR* Enoxaparin 80 MG/0.8 ML SYRINGE SQ SCH ×2 (04:56→21:33)
[2019-07-17 04:57] LABS: Basophils % 0.2 %; Eosinophils # 0.1 K/mcL (0.0-0.6); Eosinophils % 1.6 %; Hematocrit 34.6 % (35.3-44.9); Hemoglobin 11.4 g/dL (11.5-15.4); Immature Granulocytes % 0.5 % (0-4); Lymphocytes # 2.1 K/mcL (0.6-4.6); Lymphocytes % 24.9 %; Mean Corpuscular HGB Conc 32.9 g/dL (31.6-35.5); Mean Corpuscular Hemoglobin 29.2 pg (28.0-33.3); Mean Corpuscular Volume 88.7 fL (83.0-100.0); Mean Platelet Volume 8.9 fL (9.4-12.4); Monocytes # 0.6 K/mcL (0.0-1.3); Monocytes % 7.4 %; Neutrophils # 5.6 K/mcL (1.6-8.9); Platelet Count 308 K/mcL (140-400); Red Cell Distribution Width 12.7 % (11.5-14.5); Segmented Neutrophils % 65.4 %; White Blood Count 8.5 K/mcL (4.3-11.1)
[2019-07-17 05:18] LABS: Alanine Aminotransferase 15 Units/L (7-52); Albumin 4.1 g/dL (3.5-5.7); Albumin/Globulin Ratio 1.6 (1.1-2.2); Alkaline Phosphatase 46 Units/L (34-104); Aspartate Amino Transferase 16 Units/L (13-39); BUN/Creatinine Ratio 24 (6-26); Bilirubin,Total 0.3 mg/dL (0.3-1.0); Blood Urea Nitrogen 13 mg/dL (8-23); Calcium 9.6 mg/dL (8.6-10.3); Carbon Dioxide 26 mEq/L (23-29); Chloride 99 mEq/L (98-107); Globulin 2.5 g/dL (2.4-3.5); Glucose 133 mg/dL (70-105); Osmolality,Calculated 278 (280-300); Potassium 3.8 mEq/L (3.5-5.1); Sodium 133 mEq/L (136-145); Total Protein 6.6 g/dL (6.4-8.9); eGFR For African Americans > 60 (> 60); eGFR For Non-African Americans > 60 (> 60)
[2019-07-17] MEDS: Aspirin Enteric Coated 81 MG Tablet PO SCH (08:10)
[2019-07-17] MEDS: predniSONE 20 MG TABLET PO SCH (08:10)
[2019-07-17] MEDS: Gabapentin 300 MG CAPSULE PO SCH ×3 (08:10→21:33)
[2019-07-17] MEDS: Isosorbide MONOnitrate (24 HR) 30 MG TAB.ER.24H PO SCH (08:11)
[2019-07-17] MEDS: Lisinopril 20 MG TABLET PO SCH (08:11)
[2019-07-17] MEDS: Loratadine 10 MG TABLET PO SCH (08:11)
[2019-07-17] MEDS: Nicotine 21 MG PATCH.TD24 TD SCH (08:11)
--- NOTE | 2019-07-17 08:36 | Internal Med Progress Note ---
<Nehemias Carter Geronimo - Last Filed: 07/17/19 19:35> Hospitalist Progress Note - Encounter Date of Encounter: 07/17/19 Time of Encounter: 11:00 - Subjective Interval History: He shows seen and examined at bedside. Reports she does have a cough, but no increased sputum production, or shortness of breath. Denies any fever, chills, abdominal pain, nausea, vomiting, headaches, numbness, or tingling. - Exam Vitals: Temp Pulse Resp BP Pulse Ox 97.5 F L 79 19 143/64 99 07/17/19 07:28 07/17/19 07:28 07/17/19 07:28 07/17/19 07:28 07/17/19 07:28 Exam: Constitutional: Well-developed female in no acute distress Head: Normocephalic, atraumatic Eyes: PERRL, EOMI, conjunctiva pink, sclera anicteric Neck: Supple, trachea midline Lungs: Clear to auscultation bilaterally. Nonlabored breathing. No wheezes, rales, or rhonchi noted. Cardiac: RRR. +s1 +S2 No murmurs, clicks, or rubs noted. GI: Abdomen soft, nontender, nondistended. Extremities: Warm, radial pulses palpable and symmetrical. No cyanosis, pedal edema, or calf tenderness. Neuro: Alert and oriented 3. No focal deficits. Normal speech. Skin: Warm, dry, and intact. - Assessment and Plan (1) Non-STEMI (non-ST elevated myocardial infarction) Current Visit: Yes Status: Acute Assessment and Plan: Troponin increased from 0.09-0.38-0.90- 1.05-0.68-0.56 EKG showed normal sinus rhythm with nonspecific ST-T wave changes in the lateral leads Echo showed LVEF of 45% moderate aortic valve regurgitation, apex wall hypokinetic Cardiology has been consulted Underwent left heart catheterization this morning which showed severe 1 vessel disease Appreciate cardiology recommendations of medical management Continue 81 mg aspirin daily Continue Lipitor 80 mg daily Continue Plavix 75 mg daily Continue carvedilol 12.5 mg twice a day Continue to monitor Continue telemetry (2) Acute exacerbation of chronic obstructive airways disease Current Visit: Yes Status: Acute Assessment and Plan: COPD exacerbation Likely secondary to bronchitis Prednisone 40 mg by mouth daily for 5 days Azithromycin for 5 days Oxygen as needed to keep oxygen saturation above 88% We have albuterol every 4 hours, Spiriva once daily Continue Symbicort 160 g 2 puffs twice daily Continue to monitor Will need 6 minute walk test prior to discharge (3) Hypertension Current Visit: Yes Status: Chronic Assessment and Plan: Currently well controlled on current medications Continue Coreg, Lisinopril, Imdur (4) Hypercholesterolemia Current Visit: Yes Status: Chronic Assessment and Plan: On high intensity statin as above (5) Tobacco dependence Current Visit: Yes Status: Chronic Assessment and Plan: Patient down to 1-4 cigarettes per day Nicotine patch if needed for cravings (6) History of NM (myocardial infarction) Current Visit: Yes Status: Chronic Assessment and Plan: Previous NM in 2004 History of 5 stents placed (7) Diabetes mellitus Current Visit: Yes Status: Chronic Assessment and Plan: Low-dose sliding scale insulin Hold metformin and Januvia DVT Prophylaxis: Subcutaneous Lovenox - Time Spent with Patient Total time spent is greater than 50% in coordination of care (as documented) at patient's floor/unit and/or counseling patient: Internal Medicine: Result - Labs CBC & Chem 7: 07/17/19 04:46 07/17/19 04:46 Labs: Short CBC 07/17/19 Range/Units 04:46 WBC 8.5 (4.3-11.1) K/mcL Hgb 11.4 L (11.5-15.4) g/dL Hct 34.6 L (35.3-44.9) % Plt Count 308 (140-400) K/mcL Neutrophils # 5.6 (1.6-8.9) K/mcL BMP 07/17/19 04:46 Sodium 133 L Potassium 3.8 Chloride 99 Carbon Dioxide 26 BUN 13 Creatinine 0.54 L Glucose 133 H Calcium 9.6 Cardiac Enzymes 07/16/19 Range/Units 08:31 Troponin I 0.56 H* (< 0.04) ng/mL Liver Function 07/17/19 Range/Units 04:46 Total Bilirubin 0.3 (0.3-1.0) mg/dL AST 16 (13-39) Units/L ALT 15 (7-52) Units/L Alkaline Phosphatase 46 (34-104) Units/L Albumin 4.1 (3.5-5.7) g/dL - Impressions Impressions Echocardiogram 07/15/19 15:14 Impressions: LVEF 45%. Indeterminate diastolic function. Normal right ventricular structure and function. Moderate aortic regurgitation. Moderate mitral annular calcification Unable to estimate RVSP due to lack of TR jet. Left Ventricular Wall Motion: Rest Echo Findings The apex wall was hypokinetic. All other wall segments showed normal motion. Findings: Study Quality * Technically adequate exam. ECG Findings * Normal sinus rhythm. Left Ventricle * LVEF 45%. * Normal LV chamber size, wall thickness. * Indeterminate diastolic function. * There is no LV thrombus. * Definity echo contrast was used. * Mild segmental left ventricular systolic dysfunction. Right Ventricle * Normal right ventricular structure and function. Left Atrium * Normal left atrial size. Right Atrium * Normal right atrial size. Aortic Valve * Trileaflet aortic valve. * Moderate aortic regurgitation. * No aortic stenosis. * Normal aortic valve structure. Mitral Valve * Moderate mitral annular calcification * No mitral stenosis. * Trace mitral regurgitation. Interatrial Septum * Interatrial septum not well evaluated. Tricuspid Valve * Trace tricuspid regurgitation. * Unable to estimate RVSP due to lack of TR jet. * No tricuspid stenosis. * Normal tricuspid valve structure. Pulmonic Valve * Pulmonic valve not well visualized. Aorta * Normally sized aortic root. Pericardium * The pericardium appears normal. IVC * Normal IVC dimensions and inspiratory collapse. Pulmonary Artery * Normal visualized portions of the main pulmonary artery. Consult Discharge Plan - Plan Referrals: NONE,PCP [Primary Care Provider] - <Jon Mallory - Last Filed: 07/17/19 20:55> Hospitalist Progress Note - Encounter Date of Encounter: 07/17/19 - Exam Vitals: Temp Pulse Resp BP Pulse Ox 97.6 F 107 18 120/65 99 07/17/19 16:11 07/17/19 16:11 07/17/19 16:11 07/17/19 16:11 07/17/19 16:11 - Assessment and Plan (1) Acute exacerbation of chronic obstructive airways disease Current Visit: Yes Status: Acute (2) Non-STEMI (non-ST elevated myocardial infarction) Current Visit: Yes Status: Acute (3) Hypertension Current Visit: Yes Status: Chronic (4) Hypercholesterolemia Current Visit: Yes Status: Chronic (5) Tobacco dependence Current Visit: Yes Status: Chronic (6) History of NM (myocardial infarction) Current Visit: Yes Status: Chronic (7) Diabetes mellitus Current Visit: Yes Status: Chronic - Time Spent with Patient Total time spent is greater than 50% in coordination of care (as documented) at patient's floor/unit and/or counseling patient: Internal Medicine: Result - Labs CBC & Chem 7: 07/17/19 04:46 07/17/19 04:46 Labs: Short CBC 07/17/19 Range/Units 04:46 WBC 8.5 (4.3-11.1) K/mcL Hgb 11.4 L (11.5-15.4) g/dL Hct 34.6 L (35.3-44.9) % Plt Count 308 (140-400) K/mcL Neutrophils # 5.6 (1.6-8.9) K/mcL BMP 07/17/19 04:46 Sodium 133 L Potassium 3.8 Chloride 99 Carbon Dioxide 26 BUN 13 Creatinine 0.54 L Glucose 133 H Calcium 9.6 Liver Function 07/17/19 Range/Units 04:46 Total Bilirubin 0.3 (0.3-1.0) mg/dL AST 16 (13-39) Units/L ALT 15 (7-52) Units/L Alkaline Phosphatase 46 (34-104) Units/L Albumin 4.1 (3.5-5.7) g/dL - Attending Attestation I saw evaluated and examined this patient and reviewed objective data including labs and my medical decision-making was reviewed with the Resident Physician. I agree with the documented findings, disposition and treatment plan as described except to any changes set forth below. We independently had [id number] contact with the patient. <Nehemias Carter - Last Filed: 07/17/19 19:35> (3) Hypertension Qualifiers: Hypertension type: essential hypertension Qualified Code(s): I10 - Essential (primary) hypertension (7) Diabetes mellitus Qualifiers: Diabetes mellitus type: type 2 Diabetes mellitus long term care pharmacist insulin use: without long term care pharmacist use Diabetes mellitus complication status: without complication Qualified Code(s): E11.9 - Type 2 diabetes mellitus without complications <Jon Mallory - Last Filed: 07/17/19 20:55> (3) Hypertension Qualifiers: Hypertension type: essential hypertension Qualified Code(s): I10 - Essential (primary) hypertension (7) Diabetes mellitus Qualifiers: Diabetes mellitus type: type 2 Diabetes mellitus long term care pharmacist insulin use: without chcf use Diabetes mellitus complication status: without complication Qualified Code(s): E11.9 - Type 2 diabetes mellitus without complications
[2019-07-17] MEDS ORDERED: 0.9 % Sodium Chloride 1,000 ML ONE ×2 (08:55→09:01)
[2019-07-17] MEDS ORDERED: Nitroglycerin 1,000 MCG/10 ML VIAL IV ONE (08:55)
[2019-07-17] MEDS ORDERED: Heparin 1,000 UNITS/500 mL 500 ML ONE (08:55)
[2019-07-17] MEDS ORDERED: *HR* Heparin 10,000 UNIT/10 ML VIAL ONE (08:55)
[2019-07-17] MEDS ORDERED: Verapamil 5 MG/2 ML VIAL ONE (08:55)
[2019-07-17] MEDS ORDERED: Iopamidol 125 ML INFUS..BTL ONE (08:55)
--- NOTE | 2019-07-17 09:06 | Pre-Sedation Evaluation ---
Pre-sedation evaluation - Pre-sedation checklist Date of procedure: 07/17/19 Procedure: Heart Cath Recent Vitals: Last Vital Signs Temp 97.5 F L 07/17/19 07:28 Pulse 79 07/17/19 07:28 Resp 19 07/17/19 07:28 BP 143/64 07/17/19 07:28 Pulse Ox 99 07/17/19 07:28 H&P (including ROS) documented in medical record: Yes Previous reaction to sedatives/anesthetics: No Dietary Status: NPO after Midnight Dentition: No loose teeth or bridges ASA Classification *see protocol: CLASS II-Mild systemic disease Plan of Care: Pt appropriate candidate for procedure/moderate/conscious sedation, Risks/benefits of procedure/sedation discussed w/ patient/family Cardiac Registry (Cardio Only) - Functional Capacity Functional Capacity: >=4 METS with symptoms - Clincal Frailty Scale Clinical Frailty Scale: Managing Well
[2019-07-17] MEDS ORDERED: *HR* FentaNYL (PF) 100 MCG/2 ML VIAL ONE (09:10)
[2019-07-17] MEDS ORDERED: *HR* Midazolam HCl 2 MG/2 ML VIAL ONE (09:10)
[2019-07-17] MEDS: Budesonide/Formoterol 160/4.5 1 PUFF INH IH SCH ×2 (09:54→21:46)
[2019-07-17] MEDS: Tiotropium 18 MCG inhalation IH SCH (09:54)
--- NOTE | 2019-07-17 10:06 | Invasive Diagnostic Lab Proc ---
Name: Emi Hutchinson Date of Study: 07/17/2019 Date: 1955 Ht: 61.8in Medical Record#: [id number] Age: 64 Wt: 143.30lb Gender: Female BSA: 1.66 Order #: [id number] BMI: 26.37 Physicians Procedure Physician: Kelvin Jaquez MD, [facility] Referring MD: Referring MD: Staff Name Position Time In [facility], [facility] RT (R) Monitor 09:07 AM Franck Calero RN Water Pumper 09:07 AM Nilsa Montoya RT (R) Scrub 09:07 AM Procedures Performed Procedure L HRT ARTERY/VENTRICLE ANGIO AORTOGRAPHY, ABDOMINAL S&I Pre-Procedure Checklist Informed consent is complete signed and on chart. H&P is on chart. ID band is on and ID verified with patient. Patient NPO for procedure The procedure was described for the patient and questions were answered. Blood Pressure: 143/64 ECG is on chart. Rhythm: NSR Plan of Care Patient will tolerate the procedure without complications. Adequate level of comfort will be maintained. Hemodynamics will remain stable Patient will recover from procedure without complications. Respiratory function will be maintained. Cardiac rhythm will remain stable. Patient temperature will be maintained. Patient and/or family have verbalized understanding of the procedure. Patient Education Chief Complaint/Reason for Test: Cardiac Cath Developmental Category: Geriatric (65+ years) Developmentally Appropriate for Age: Yes Learning Barriers: None Education Needs: Procedure Education Method: Verbal Information Taught: Cardiac Cath Educational Evaluation: Able to repeat information Intravenous Access Time IV Size Location DC'd Fluid/Drip Rate Units RN 20g 1 /" Patent On Arrival Lt Wrist 0.9NaCl 50 ml/hr Franck Calero RN Allergies No Known Allergies Vital Signs Time BP (mmHg) HR (bpm) O2 Sat. RR (bpm) LOC 09:10 AM / % 5 = Fully awake and oriented or at pre-proc level 09:10 AM 128 / 64 74 100 % 24 09:15 AM 116 / 62 73 100 % 15 09:20 AM 109 / 55 72 100 % 14 09:25 AM 104 / 53 71 99 % 15 09:29 AM 101 / 57 74 99 % 16 09:34 AM 102 / 56 81 95 % 17 09:39 AM 106 / 57 80 98 % 22 09:45 AM 113 / 54 80 100 % 14 09:50 AM 115 / 60 76 99 % 12 Procedural Medications Time Medication Dose Units Method Given By 09:10 AM Oxygen 2 L/min nasal cannula Franck Calero RN 09:11 AM Versed 1 mg Intravenous Franck Calero RN 09:11 AM Fentanyl 50 mcg Intravenous Franck Calero RN 09:19 AM Versed 1 mg Intravenous Franck Calero RN 09:23 AM Lidocaine 2% 20 ml Subcutaneous Kelvin Jaquez MD, [facility] ASA Classification: CLASS II- Mild systemic disease (i.e. well-controlled diabetes, hypertension, asthma, cigarette smoking) Nigel Score Preprocedure Postprocedure Activity 2- Moves 4 extremities sustained head lift Activity 2- Moves 4 extremities sustained head lift Circulation 2- SBP +/= 20 points of pre-anesthetic level Circulation 2- SBP +/= 20 points of pre-anesthetic level Consciousness 2- Awake and alert oriented x 3 Consciousness 2- Awake and alert oriented x 3 O2 Saturation 2- Able to maintain O2 satruation of 92% on room air O2 Saturation 2- Able to maintain O2 satruation of 92% on room air Respiratory 2- Able to deep breathe and cough well Respiratory 2- Able to deep breathe and cough well Total Score 10 Total Score 10 Contrast Agent: Isovue Diagnostic Contrast: 76 ml Total Contrast: 76 ml Fluoro Dose: 23 mGy Procedure Log Time Note Enter By 09:07 AM Pt arrived to labeling machine operator 2 at 09:07 tsites 09:07 AM Eloina Munoz RT (R) Position: Monitor Time in: 09:07 tsites 09:07 AM Franck Calero RN Position: Water Pumper Time in: 09:07 tsites 09:07 AM Nilsa Montoya RT (R) Position: Scrub Time in: 09:07 tsites 09:07 AM Patient charges- Angio tray pack, Navilyst 3mm J, Pulse Oximetry and ACIST tubing and transducer tsites 09:07 AM Physician arrived 09:07 tsites 09:07 AM Tom and jemima completed tsites 09:07 AM Sign in performed according to hospital policy. Informed consent was obtained. tsites 09:07 AM Recorded ECG: HR=72 Condition=Condition 1 09:08 AM CathStat 09:08 AM Recorded ECG: HR=82 Condition=Condition 1 09:08 AM Vitals capture started with the following parameters, Patient=Adult, Interval=5 min, Initial Albhqygd=805 mmHg, Deflation Rate=3 mmHg, Cuff placed on Right Arm 09:08 AM Vitals capture stopped. 09:09 AM Vitals capture started with the following parameters, Patient=Adult, Interval=5 min, Initial Levhqvyh=615 mmHg, Deflation Rate=3 mmHg, Cuff placed on Right Arm 09: AM Procedure start : tsites 09: AM Hair removed from procedure site in holding area using clippers. Bilateral groin prepped with Chloraprep by Nilsa Montoya (R), then patient was draped. Skin intact. tsites : AM Clinical Presentation: Non-STEMI tsites 09: AM HR=74 bpm, ZOJA=885/64 mmhg, YfK8=454.0 %, Resp=24 B/min 09: AM Case Delayed No tsites : AM Time: 09:10 Oxygen on at 2 L/min per nasal cannula by Franck Calero RN [facility] : AM Time: 09:10 Patient comfortable and pain free: Yes [facility] Time: :10LOC: 5 = Fully awake and oriented or at pre-proc level [facility] AM Time: 09:11 Versed 1 mg Intravenous Given by Franck Calero RN [facility] : AM Time: 09:11 Fentanyl 50 mcg Intravenous Given by Franck [facility]ero [facility]15 AM HR=73 bpm, SADY=654/62 mmhg, UaW1=222 %, Resp=15 B/min 09:17 AM Pressure channel 1 zeroed. 09:19 AM Time: 09:19 Versed 1 mg Intravenous Given [facility] Franck [facility] AM Time out was performed according to hospital policy. Conscious sedation and anesthesia was achieved (see medication log with in this report above) tsites : AM HR=72 bpm, EPTC=106/55 mmhg, FzV4=855.0 %, Resp=14 B/min : AM Time: : 20 ml Lidocaine 2% to right groin Subcutaneous Given by Kelvin Jaquez MD, [facility] tsites : AM Micro-Introducer Kit utilized for sheath placement tsites : AM Access obtained by percutaneous puncture. 4Fr 10cm Micro sheath placed in right Femoral artery. [id number] tsites :25 AM HR=71 bpm, JOLC=819/53 mmhg, SpO2=99.0 %, Resp=15 B/min, Comment=sr 09:25 AM Sheath exchanged for a 5 Fr 11 cm [employer] [place] sheath [id number] tsites 09:25 AM 5Fr FL 4 catheter inserted over the wire [facility] tsites 09:25 AM 0.035 145cm Navilyst 3mmJ wire [id number] tsites 09:26 AM Wire removed tsites 09:27 AM 0.035 145cm VSI Herbie-Torque wire [id number] tsites 09:29 AM LCA angiography performed in multiple views. tsites 09:29 AM Recorded Pressure: Ao, HR=74, Condition=Condition 1 (Aorta) Ao 35/3/18 09:29 AM HR=74 bpm, ZWYU=100/57 mmhg, SpO2=99.0 %, Resp=16 B/min 09:30 AM 0.035 260cm Navilyst 3mmJ wire [id number] tsites 09:30 AM 5Fr FR 4 catheter inserted over the wire [facility] 09:31 AM Recorded Pressure: LV, HR=77, Condition=Condition 1 (Left Ventricle) LV 112/0/9 09:32 AM Lesion found in Mid LAD. Pre Stenosis: 50 Pre ION Flow: tsites 09:32 AM Catheter crossed the aortic valve and was selectively placed in the left ventricle. Pressures recorded on pullback for left heart catheterization. tsites 09:32 AM Bolus angiogram of left Ventricle complete: 12 ml/sec for a total of 30 mls tsites 09:33 AM Recorded Pressure: LV, Ao, HR=85, Condition=Condition 1 (Left Ventricle) LV 114/1/10, (Aorta) Ao 102/49/70 09:33 AM RCA angiography performed in multiple views. tsites 09:33 AM Recorded Pressure: Ao, HR=80, Condition=Condition 1 (Aorta) Ao 92/61/75 09:34 AM Catheter removed tsites 09:34 AM Lesion found in Proximal RCA. Pre Stenosis: 100 Pre ION Flow: tsites 09:34 AM HR=81 bpm, JGQP=099/56 mmhg, SpO2=95.0 %, Resp=17 B/min 09:35 AM Mid/Distal Left Anterior Descending Coronary Artery and diagonal branches with 50% stenosis. If graft is supplying this area, 0 % stenosis tsites 09:35 AM Right Coronary, Right Posterior Descending Arteries with Right Posterolateral and Acute Marginal branches with 100 % stenosis. If graft is supplying this area, 0 % stenosis tsites 09:35 AM pigtail reinserted tsites 09:35 AM Right renal angiography performed in multiple views tsites 09:35 AM Bolus angiogram of Abdominal aorta complete: 15 ml/sec for a total of 30 mls tsites 09:37 AM wire reinserted catheter removed tsites 09:38 AM Coronary Dominance: right tsites 09:38 AM Procedure completed at 09:38 07/17/2019 tsites 09:38 AM Did you address ION flow and Dominance? YesCoronary Dominance: right tsites 09:39 AM Sign out completed: Radiation Dose 112 mGy, 22.9 Gy/cm2 Fluoro Time: 2.4 Isovue 370 - 200ml contrast 76 ml given by Kelvin Jaquez MD, [facility]. Complications: None. The patient was discharged out of the labor delivery rn in stable condition. Sedation minutes 28. Cardiac Rehab Consult needed: No. Confirmed administered medications: Yes tsites 09:39 AM Isovue 370 - 200ml,1 Bottle(s) used. tsites 09:39 AM HR=80 bpm, IFVO=119/57 mmhg, SpO2=98 %, Resp=22 B/min 09:45 AM HR=80 bpm, GWLO=524/54 mmhg, RsF2=851.0 %, Resp=14 B/min 09:48 AM Arterial sheath pulled using manual compression and V+ Pad for 15 minutes by Nilsa Montoya RT (R) tsites 09:50 AM HR=76 bpm, IIFI=017/60 mmhg, SpO2=99 %, Resp=12 B/min 09:51 AM Estimated Blood Loss: minimal tsites 09:51 AM Post ECG NSR tsites 09:51 AM Post Blood Pressure 115/60 tsites 09:51 AM 09:51 Post Pulses Bilateral DP & PT 2+ tsites 09:52 AM Information taught Cardiac Cath and V+ Pad tsites 09:52 AM Education needs Procedure, Plan of Care, and Responsibilities of Patient in Care tsites 09:52 AM Learning barriers :None tsites 09:52 AM Education Methods Verbal tsites 09:52 AM Education evaluation Able to repeat information tsites 09:56 AM Report given to carloz MOODY Pt taken to [facility] Room #20. 09:56 tsites 09:56 AM Site status No bleeding/ No Hematoma - Rt Groin as reported by Nilsa Montoya RT (R) at 09:56 tsites 09:56 AM Opsite applied tsites Complications Complication None Hemodynamics Pressures Site Systolic/A Wave Diastolic/V Wave Mean AO 35 3 18 LV 112 0 9 LV 114 1 10 AO 102 49 70 AO 92 61 75 Post Procedure Information Blood Pressure: 115/60 mmHg Rhythm: NSR Post procedural instructions were given Closure Device Time Device Success/Fail 07/17/2019 9:41:00 AM V+Pad Successful Site Checks Time Location Status Staff Sheath In? Note 09:56 AM Rt Groin No bleeding/ No Hematoma Nilsa Montoya RT (R) Pulses Time Site Pre-Procedure Post-Procedure Note Bilateral DP & PT 2+ Bilateral radial 2+ 9:51:00 AM Bilateral DP & PT 2+ Updated by Eloina Munoz RT (R) on 07/17/2019 9:59:04 AM Eloina Munoz RT electronically signed on 07/17/2019 9:59:22 AM with status of Final
--- NOTE | 2019-07-17 14:10 | Event Note ---
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 Would recommend continuing ASA, Plavix, BB, ACEi & Statin as well as smoking cessation. Patient to follow with primary wood room hand. Cardiology will sign-off at this time. Please re-consult as needed. HAS-BLED Score - Score Medication usage predisposing to bleeding: Antiplatelet agents, NSAIDs, Anticoagulants Score: 1 No Risk: HAS-BLED Score=0, no bleeding risk
[2019-07-17] MEDS: Azithromycin 250 MG TABLET PO SCH (16:21)
[2019-07-18] MEDS: Levalbuterol Neb 0.63 MG/3 ML IH SCH ×3 (03:52→16:01)
[2019-07-18] MEDS: *HR* Enoxaparin 80 MG/0.8 ML SYRINGE SQ SCH (05:33)
[2019-07-18 06:26] LABS: Basophils % 0.4 %; Eosinophils # 0.1 K/mcL (0.0-0.6); Eosinophils % 1.1 %; Hematocrit 33.9 % (35.3-44.9); Immature Granulocytes % 0.2 % (0-4); Lymphocytes # 2.8 K/mcL (0.6-4.6); Mean Corpuscular HGB Conc 32.4 g/dL (31.6-35.5); Mean Corpuscular Hemoglobin 29.1 pg (28.0-33.3); Mean Corpuscular Volume 89.7 fL (83.0-100.0); Monocytes # 0.7 K/mcL (0.0-1.3); Monocytes % 7.9 %; Neutrophils # 4.7 K/mcL (1.6-8.9); Platelet Count 318 K/mcL (140-400); Red Blood Count 3.78 M/mcL (3.82-4.97); Red Cell Distribution Width 12.9 % (11.5-14.5); Segmented Neutrophils % 56.4 %; White Blood Count 8.4 K/mcL (4.3-11.1)
[2019-07-18 06:44] LABS: BUN/Creatinine Ratio 25 (6-26); Blood Urea Nitrogen 13 mg/dL (8-23); Calcium 8.9 mg/dL (8.6-10.3); Carbon Dioxide 29 mEq/L (23-29); Chloride 100 mEq/L (98-107); Glucose 95 mg/dL (70-105); Osmolality,Calculated 284 (280-300); Potassium 3.8 mEq/L (3.5-5.1); Sodium 137 mEq/L (136-145); eGFR For African Americans > 60 (> 60); eGFR For Non-African Americans > 60 (> 60)
[2019-07-18 07:10] VITALS: BP 137/63
[2019-07-18] MEDS: Aspirin Enteric Coated 81 MG Tablet PO SCH (08:32)
[2019-07-18] MEDS: Isosorbide MONOnitrate (24 HR) 30 MG TAB.ER.24H PO SCH (08:32)
[2019-07-18] MEDS: Gabapentin 300 MG CAPSULE PO SCH ×2 (08:33→13:38)
[2019-07-18] MEDS: Loratadine 10 MG TABLET PO SCH (08:33)
[2019-07-18] MEDS: predniSONE 20 MG TABLET PO SCH (08:33)
[2019-07-18] MEDS: Lisinopril 20 MG TABLET PO SCH (08:33)
[2019-07-18] MEDS: Nicotine 21 MG PATCH.TD24 TD SCH (08:34)
[2019-07-18] MEDS: Insulin LISPRO 300 UNITS/3 ML VIAL SQ SCH ×2 (08:34→13:42)
--- NOTE | 2019-07-18 10:28 | Discharge Summary ---
<Coleen Bennett E - Last Filed: 07/18/19 13:52> Date of Encounter: 07/18/19 Time of Encounter: 09:15 - Discharge Diagnosis (1) Non-STEMI (non-ST elevated myocardial infarction) Priority: Primary Status: Acute Assessment and Plan: Troponin increased from 0.09-0.38-0.90- 1.05-0.68-0.56 EKG showed normal sinus rhythm with nonspecific ST-T wave changes in the lateral leads Echo showed LVEF of 45% moderate aortic valve regurgitation, apex wall hypokinetic Cardiology has been consulted Left heart catheter showed severe one-vessel coronary artery disease in the RCA RETAIL BAKERY MANAGER with mature [id number] collaterals. Mild to moderate segmental LV dysfunction EF of 30-35% not attributable to RCA RETAIL BAKERY MANAGER. Borderline severe stenosis of infrarenal abdominal aorta. Commended often more medical therapy for patient's disease including aspirin, Lipitor, Coreg, Plavix, Zestril (2) Hypertension Priority: Secondary Status: Chronic Assessment and Plan: Currently well controlled on current medications Continue Coreg, Lisinopril, Imdur Qualifiers: Hypertension type: essential hypertension Qualified Code(s): I10 - Essential (primary) hypertension (3) Hypercholesterolemia Priority: Secondary Status: Chronic Assessment and Plan: Continue home atorvastatin (4) Tobacco dependence Priority: Secondary Status: Chronic Assessment and Plan: Discussed tobacco cessation with patient (5) History of MD (myocardial infarction) Priority: Secondary Status: Chronic Assessment and Plan: Previous MD in 2004 History of 5 stents placed (6) Acute exacerbation of chronic obstructive airways disease Priority: Primary Status: Acute Assessment and Plan: COPD exacerbation Likely secondary to bronchitis Prednisone 40 mg by mouth daily for 5 days Azithromycin for 5 days Oxygen as needed to keep oxygen saturation above 88% Continue home inhalers (7) Elevated troponin Priority: Primary Status: Acute Assessment and Plan: Secondary to NSTEMI (8) Hyponatremia Priority: Secondary Status: Resolved Assessment and Plan: Initially low on admission Corrected with one bite of IV normal saline Resolved (9) Diabetes mellitus Priority: Secondary Status: Chronic Assessment and Plan: Resume home medications Qualifiers: Diabetes mellitus type: type 2 Diabetes mellitus longterm insulin use: without longterm use Diabetes mellitus complication status: without complication Qualified Code(s): E11.9 - Type 2 diabetes mellitus without complications Hospital course: Ms. Hutchinson is a 64 year old female initially admitted for chest pain and shortness of breath, troponins were followed as they increased from 0.09-1.05. Patient received left heart catheterization on 828 which showed severe one- vessel disease with recommendations to be on aspirin, Lipitor, Coreg, Plavix, Zestril. Patient was also treated for COPD exacerbation with azithromycin and prednisone. Patient will be sent home on 1 more day of azithromycin and prednisone 40 mg by mouth. Patient has been doing well and has decreased chest pain as well as cough and phlegm production. Discharge discussed with: patient - Time Spent with Patient Total time spent providing and/or coordinating discharge services: - Discharge Medications Prescriptions: New Nicotine Patch [Nicoderm] 21 mg TD DAILY patch.td24 predniSONE [PredniSONE] 40 mg PO DAILY #1 tablet Azithromycin [Zithromax] 250 mg PO Q24H #1 tablet Continued Fluticasone/Umeclidin/Vilanter [Trelegy Ellipta 100-62.5-25] 1 puff IH DAILY Clopidogrel [Plavix] 75 mg PO DAILY Carvedilol [Coreg] 12.5 mg PO BID SitaGLIPtin [Januvia] 100 mg PO DAILY Cyclobenzaprine [Flexeril] 10 mg PO HS PRN PRN Reason: Muscle Spasm Isosorbide MONOnitrate [Isosorbide Mononitrate ER] 30 mg PO DAILY Multivitamin [Multivitamins] 1 cap PO DAILY Cetirizine HCl [All Day Allergy] 10 mg PO HS Evening Imperial Oil [Evening Imperial] 500 mg PO BID Ipratropium/Albuterol Neb [Duoneb] 3 ml IH Q4HR PRN PRN Reason: Wheezing Albuterol Sulfate [Ventolin Hfa] 2 puff IH Q4H Metformin HCl 1,000 mg PO BID Loratadine [Allergy Relief] 10 mg PO DAILY Gabapentin [Neurontin] 300 mg PO TID Aspirin [Adult Aspirin] 81 mg PO DAILY Lisinopril [Zestril] 10 mg PO DAILY Atorvastatin [Lipitor] 40 mg PO HS Folic Acid 800 mg PO DAILY Discontinued hydrOXYzine HCl [Hydroxyzine HCl] 25 - 75 mg PO TID PRN PRN Reason: ANXIETY,ITCHING Meloxicam [Mobic] 7.5 mg PO DAILY Home Medications: Albuterol Sulfate [Ventolin Hfa] 2 puff IH Q4H 07/15/19 [History] Aspirin [Adult Aspirin] 81 mg PO DAILY 07/15/19 [History] Atorvastatin [Lipitor] 40 mg PO HS 07/15/19 [History] Carvedilol [Coreg] 12.5 mg PO BID 07/15/19 [History] Clopidogrel [Plavix] 75 mg PO DAILY 07/15/19 [History] Cyclobenzaprine [Flexeril] 10 mg PO HS PRN 07/15/19 [History] Fluticasone/Umeclidin/Vilanter [Trelegy Ellipta 100-62.5-25] 1 puff IH DAILY 07/15/19 [History] Folic Acid 800 mg PO DAILY 07/15/19 [History] Gabapentin [Neurontin] 300 mg PO TID 07/15/19 [History] Ipratropium/Albuterol Neb [Duoneb] 3 ml IH Q4HR PRN 07/15/19 [History] Isosorbide MONOnitrate [Isosorbide Mononitrate ER] 30 mg PO DAILY 07/15/19 [History] Lisinopril [Zestril] 10 mg PO DAILY 07/15/19 [History] Loratadine [Allergy Relief] 10 mg PO DAILY 07/15/19 [History] Metformin HCl 1,000 mg PO BID 07/15/19 [History] Multivitamin [Multivitamins] 1 cap PO DAILY 07/15/19 [History] SitaGLIPtin [Januvia] 100 mg PO DAILY 07/15/19 [History] Cetirizine HCl [All Day Allergy] 10 mg PO HS 07/16/19 [History] Evening Imperial Oil [Evening Imperial] 500 mg PO BID 07/16/19 [History] Azithromycin [Zithromax] 250 mg PO Q24H #1 tablet 07/18/19 [Rx] Nicotine Patch [Nicoderm] 21 mg TD DAILY patch.td24 07/18/19 [Rx] predniSONE [PredniSONE] 40 mg PO DAILY #1 tablet 07/18/19 [Rx] Allergies/Adverse Reactions: Allergy/AdvReac Type Severity Reaction Status Date / Time No Known Allergies Allergy Verified 07/16/19 10:23 Date of admission: 07/15/19 11:13 Primary care physician: PCP NONE Consults: 07/15/19 15:06 Consult to Cardiology [CONS] Routine Comment: Consulting Provider: Cardiology Neelima Reason for Consult: NSTEMI Call Completed: Yes Consult to Casino Cage Manager [CONS] Routine Reason for SW Consult: Home O2 @ 2l PRN through [facility] 07/18/19 08:24 Consult to Cardiac Rehabilitation-Phase1 [CONS] Routine Comment: Reason for Consult: NSTEMI Call Completed: No Discharging clinician: Jon Mallory Anticipated date of discharge: 07/18/19 - Constitutional Vitals: Temp Pulse Resp BP Pulse Ox 98.1 F 72 18 137/63 99 07/18/19 07:06 07/18/19 07:06 07/18/19 07:06 07/18/19 07:06 07/18/19 07:06 Exam: General: AAO 3, no acute distress, answers questions appropriately Head: normocephalic, atraumatic Eyes: HERNANDO, no icterus Cardio: RRR, no murmurs, rubs, or gallops Respiratory: CAB, no wheezing, rhonchi, rales Abd: normal bowel sounds, no gaurding or rigidity Extremities: no pea edema, pulses equal bilaterally, warm Skin: warm, dry, intact - Patient Status Disposition: Home, Self-Care Condition: Good Functional capacity at discharge: independent ambulation Overall status at discharge: patient is progressing back to baseline - Discharge Instructions Instructions: Prednisone (By mouth), Azithromycin (By mouth), Myocardial Infarction (DC), Left Heart Catheterization (DC), Diabetes Mellitus Type 2 in Adults (DC), Using Oxygen at Home (DC), Chronic Obstructive Pulmonary Disease (DC), Chronic Hypertension (DC) Follow Up With: NONE,PCP [Primary Care Provider] - - Diet and Activity Activity: as per physical therapy Diet: advance to your usual diet <Jon Mallory - Last Filed: 07/18/19 17:51> Date of Encounter: 07/18/19 - Discharge Diagnosis (1) Acute exacerbation of chronic obstructive airways disease Status: Acute (2) Non-STEMI (non-ST elevated myocardial infarction) Status: Acute (3) Hypertension Status: Chronic Qualifiers: Hypertension type: essential hypertension Qualified Code(s): I10 - Essential (primary) hypertension (4) Hypercholesterolemia Status: Chronic (5) Tobacco dependence Status: Chronic (6) History of MD (myocardial infarction) Status: Chronic (7) Diabetes mellitus Status: Chronic Qualifiers: Diabetes mellitus type: type 2 Diabetes mellitus longterm insulin use: without longterm use Diabetes mellitus complication status: without complication Qualified Code(s): E11.9 - Type 2 diabetes mellitus without complications Hospital course: Ms. Hutchinson is a 64 year old female - Time Spent with Patient Total time spent providing and/or coordinating discharge services: Date of admission: 07/15/19 11:13 Primary care physician: PCP NONE Consults: 07/15/19 15:06 Consult to Cardiology [CONS] Routine Comment: Consulting Provider: Cardiology Neelima Reason for Consult: NSTEMI Call Completed: Yes Consult to Casino Cage Manager [CONS] Routine Reason for SW Consult: Home O2 @ 2l PRN through [facility] 07/18/19 08:24 Consult to Cardiac Rehabilitation-Phase1 [CONS] Routine Comment: Reason for Consult: NSTEMI Call Completed: No - Constitutional Vitals: Temp Pulse Resp BP Pulse Ox 98.1 F 72 16 137/63 92 07/18/19 07:06 07/18/19 07:06 07/18/19 16:02 07/18/19 07:06 07/18/19 16:02 - Attending Attestation I saw evaluated and examined this patient and reviewed objective data including labs and my medical decision-making was reviewed with the Resident Physician. I agree with the documented findings, disposition and treatment plan as described except to any changes set forth below. We independently had [id number] contact with the patient.
[2019-07-18] MEDS: Budesonide/Formoterol 160/4.5 1 PUFF INH IH SCH (10:46)
[2019-07-18] MEDS: Tiotropium 18 MCG inhalation IH SCH (10:46)
[2019-07-18] MEDS ORDERED: Insulin LISPRO 300 UNITS/3 ML VIAL SQ SCH (21:00)
== END 2019-07-18 20:17 | disposition home or self-care (01) ==
LOC: 2NENU → SUATTDRO 11:13
PROVIDERS: ADMIT Internal Medicine Nephrology; ATTEND Student in an Organized Health Care Education/Training Program

== ENCOUNTER 2020-06-18 11:54 | Inpatient (IN) ==
[2020-06-18] MEDS ORDERED: *HR* LORazepam 2 MG/ML VIAL ONE (14:43)
[2020-06-18 14:44] LABS: Adenovirus Not Detected (Not Detect); Bordetella Pertussis Not Detected (Not Detect); Chlamydophila pneumoniae Not Detected (Not Detect); Coronavirus 229E Not Detected (Not Detect); Coronavirus HKU1 Not Detected (Not Detect); Coronavirus NL63 Not Detected (Not Detect); Coronavirus OC43 Not Detected (Not Detect); Human Metapneumovirus Not Detected (Not Detect); Human Rhinovirus/Enterovirus Not Detected (Not Detect); Influenza A Subtype 2009 H1 Not Detected (Not Detect); Influenza B Not Detected (Not Detect); Mycoplasma pneumoniae Not Detected (Not Detect); Parainfluenza Virus 1 Not Detected (Not Detect); Parainfluenza Virus 2 Not Detected (Not Detect); Parainfluenza Virus 3 Not Detected (Not Detect); Parainfluenza Virus 4 Not Detected (Not Detect); Respiratory Syncytial Virus Not Detected (Not Detect); SARS-CoV-2 Not Detected (Not Detect)
[2020-06-18 14:54] LABS: ABG Base Excess -2 mEq/L (-2 to 3); ABG HCO3 28 mEq/L (21-27); ABG Oxygen Saturation 98 % (95-98); ABG PCO2 80 mmHg (35-45); ABG PH 7.15 pH Units (7.32-7.45); ABG PO2 138 mmHg (85-104); ABG TCO2 30 mEq/L (20-26); Blood Gas Pressure Support 10 cm H2O
[2020-06-18] MEDS ORDERED: Naloxone 0.4 MG/ML INJ IVP PRN (15:54)
[2020-06-18] MEDS ORDERED: Albuterol 2.5 MG/3 ML NEBULIZER IH PRN (15:59)
[2020-06-18] MEDS ORDERED: Ipratropium/Albuterol Neb 3 ML IH SCH (16:00)
[2020-06-18] MEDS ORDERED: Azithromycin 500 MG in 0.9 % Sodium Chloride 250 ML IVPB SCH (16:00)
[2020-06-18] MEDS ORDERED: Dexmedetomidine HCl 400 MCG/100 ML MLS IVC ONE (16:05)
[2020-06-18] MEDS: Dexmedetomidine HCl 400 MCG/100 ML MLS IVC SCH (16:07)
[2020-06-18] MEDS: carvediloL 25 MG TABLET PO SCH (16:19)
[2020-06-18] MEDS ORDERED: *HR* LORazepam 2 MG/ML VIAL IVP ONE (16:22)
[2020-06-18] MEDS: cefTRIAXone 1,000 MG in Water for inj. (sterile) 10 ML IVP SCH (16:22)
[2020-06-18] MEDS: methylPREDNISolone 125 MG/2 ML VIAL IVP SCH (16:22)
[2020-06-18] MEDS ORDERED: *HR* Enoxaparin 40 MG/0.4 ML SYRINGE SQ SCH (16:45)
[2020-06-18] MEDS: Levalbuterol Neb 0.63 MG/3 ML IH SCH ×2 (17:08→22:33)
[2020-06-18 17:10] LABS: BUN/Creatinine Ratio 29 (6-26); Blood Urea Nitrogen 17 mg/dL (8-23); Calcium 8.1 mg/dL (8.6-10.3); Carbon Dioxide 16 mEq/L (23-29); Chloride 107 mEq/L (98-107); Glucose 142 mg/dL (70-105); Osmolality,Calculated 288 (280-300); Potassium 5.2 mEq/L (3.5-5.1); Sodium 137 mEq/L (136-145); Troponin I 0.41 ng/mL (< 0.04); eGFR For African Americans > 60 (> 60); eGFR For Non-African Americans > 60 (> 60)
[2020-06-18] MEDS ORDERED: Perflutren Lipid Microsphere 1.3 ML in 0.9 % Sodium Chloride 8.7 ML IVP PRN (17:14)
[2020-06-18] MEDS: Ringers Solution, Lactated 1,000 ML IVC SCH (17:26)
[2020-06-18] MEDS ORDERED: D5% in Water 1,000 ML IVC PRN (17:54)
[2020-06-18] MEDS ORDERED: Dextrose Gel 15 GM/37.5 ML TUBE PO PRN ×2 (17:54)
[2020-06-18] MEDS ORDERED: *HR* Dextrose 50 % in Water (Vial) 50 ML VIAL IVP PRN (17:54)
[2020-06-18 18:32] LABS: ABG Base Excess -1 mEq/L (-2 to 3); ABG HCO3 26 mEq/L (21-27); ABG Oxygen Saturation 98 % (95-98); ABG PCO2 51 mmHg (35-45); ABG PH 7.31 pH Units (7.32-7.45); ABG PO2 111 mmHg (85-104); ABG TCO2 27 mEq/L (20-26); Blood Gas Modality AVAPS
[2020-06-18] MEDS ORDERED: *HR* LORazepam 2 MG/ML VIAL IVP PRN (18:34)
[2020-06-18 18:44] LABS: Estimated Average Glucose 157 mg/dl; Hemoglobin A1C 7.1 %
[2020-06-18] MEDS: Ipratropium/Albuterol Neb 3 ML IH SCH ×4 (19:37→23:46)
[2020-06-18 19:54] LABS: ABG Base Excess 0 mEq/L (-2 to 3); ABG HCO3 26 mEq/L (21-27); ABG Oxygen Saturation 98 % (95-98); ABG PCO2 52 mmHg (35-45); ABG PH 7.31 pH Units (7.32-7.45); ABG PO2 117 mmHg (85-104); ABG TCO2 28 mEq/L (20-26); Blood Gas VT 550 cc
[2020-06-18] MEDS: levoFLOXacin 750 MG/150 ML 750 MG/150 ML BAG IVPB SCH (20:18)
[2020-06-19 00:05] LABS: Bilirubin,Urine Negative (Negative); Blood,Urine Negative (Negative); Clarity,Urine Clear (Clear); Color,Urine Light-Yellow (Yellow); Glucose,Urine (UA) 70 mg/dL (Normal); Hyaline Casts,Urine Few per lpf (None Seen); Ketones,Urine Negative (Negative); Leukocyte Esterase,Urine Negative (Negative); Mucus,Urine Few per lpf (None-Few); Nitrite,Urine Negative (Negative); PH,Urine 5.5 pH Units (5.0-8.0); Protein,Urine 30 mg/dL (Neg-Trace); RBC,Urine 0-3 per hpf (0-3); Specific Gravity,Urine > 1.030 (1.010-1.025); Squamous Epithelial Cell,Urine Few per hpf (None-Few); Urobilinogen,Urine Normal (Normal); WBC,Urine 0-3 per hpf (0-3)
[2020-06-19] MEDS: Ringers Solution, Lactated 1,000 ML IVC SCH (00:32)
[2020-06-19] MEDS: methylPREDNISolone 125 MG/2 ML VIAL IVP SCH ×3 (00:33→12:46)
[2020-06-19] MEDS: Ipratropium/Albuterol Neb 3 ML IH SCH ×5 (02:31→20:28)
[2020-06-19 05:24] LABS: ABG Base Excess 2 mEq/L (-2 to 3); ABG HCO3 27 mEq/L (21-27); ABG Oxygen Saturation 98 % (95-98); ABG PCO2 42 mmHg (35-45); ABG PH 7.41 pH Units (7.32-7.45); ABG PO2 99 mmHg (85-104); ABG TCO2 28 mEq/L (20-26); Blood Gas Modality AVAPS; Blood Gas VT 550 cc
[2020-06-19 06:05] LABS: Basophils % 0.1 %; Eosinophils % 0.1 %; Hematocrit 31.4 % (35.3-44.9); Hemoglobin 9.6 g/dL (11.5-15.4); Immature Granulocytes % 0.5 % (0-4); Lymphocytes # 0.5 K/mcL (0.6-4.6); Lymphocytes % 5.2 %; Mean Corpuscular HGB Conc 30.6 g/dL (31.6-35.5); Mean Corpuscular Hemoglobin 27.5 pg (28.0-33.3); Mean Platelet Volume 10.2 fL (9.4-12.4); Monocytes # 0.2 K/mcL (0.0-1.3); Monocytes % 2.8 %; Neutrophils # 7.9 K/mcL (1.6-8.9); Platelet Count 223 K/mcL (140-400); Red Blood Count 3.49 M/mcL (3.82-4.97); Segmented Neutrophils % 91.3 %; White Blood Count 8.7 K/mcL (4.3-11.1)
[2020-06-19 06:25] LABS: BUN/Creatinine Ratio 33 (6-26); Blood Urea Nitrogen 17 mg/dL (8-23); Carbon Dioxide 24 mEq/L (23-29); Chloride 103 mEq/L (98-107); Glucose 171 mg/dL (70-105); Osmolality,Calculated 292 (280-300); Potassium 4.1 mEq/L (3.5-5.1); Sodium 138 mEq/L (136-145); eGFR For African Americans > 60 (> 60); eGFR For Non-African Americans > 60 (> 60)
[2020-06-19] MEDS: Dexmedetomidine HCl 400 MCG/100 ML MLS IVC SCH (06:26)
[2020-06-19 06:31] LABS: Thyroid Stimulating Hormone 0.921 mcIU/mL (0.340-5.600)
[2020-06-19] MEDS ORDERED: *HR* Heparin 5,000 UNIT/ML VIAL IVP PRN ×4 (06:33→13:43)
[2020-06-19] MEDS ORDERED: *HR* Heparin 5,000 UNIT/ML VIAL IVP ONE ×2 (06:33→13:43)
[2020-06-19] MEDS ORDERED: Perflutren Lipid Microsphere 1.3 ML in 0.9 % Sodium Chloride 8.7 ML IVP PRN (06:40)
[2020-06-19] MEDS ORDERED: Heparin 25,000 UNIT/250 ML D5W 25,000 UNIT/250 ML IV.SOLN IVC SCH (06:45)
[2020-06-19 08:35] LABS: INR 1.1; Prothrombin Time 12.4 Seconds (9.4-12.1)
[2020-06-19 08:37] LABS: Activated Partial Thrombo Time 24.3 Seconds (26.0-36.0)
[2020-06-19] MEDS: carvediloL 25 MG TABLET PO SCH ×2 (08:53→15:55)
[2020-06-19] MEDS: levoFLOXacin 750 MG/150 ML 750 MG/150 ML BAG IVPB SCH (08:55)
[2020-06-19] MEDS: cefTRIAXone 1,000 MG in Water for inj. (sterile) 10 ML IVP SCH (08:55)
[2020-06-19] MEDS ORDERED: Loratadine 10 MG TABLET PO SCH (09:00)
[2020-06-19] MEDS ORDERED: Aspirin Enteric Coated 81 MG Tablet PO SCH (09:00)
[2020-06-19] MEDS ORDERED: lisinopriL 10 MG TABLET PO SCH (09:00)
[2020-06-19] MEDS ORDERED: Isosorbide MONOnitrate (24 HR) 30 MG TAB.ER.24H PO SCH (09:00)
[2020-06-19 09:18] LABS: Heparin anti-factor XA UFH 0.15 IU/mL (0.30-0.70)
[2020-06-19] MEDS: Insulin LISPRO 300 UNITS/3 ML VIAL SQ SCH ×3 (09:35→17:01)
[2020-06-19] MEDS ORDERED: Furosemide 40 MG/4 ML VIAL IVP ONE (11:31)
[2020-06-19 12:11] LABS: Hematocrit 28.7 % (35.3-44.9); Hemoglobin 8.9 g/dL (11.5-15.4); Mean Corpuscular Hemoglobin 27.4 pg (28.0-33.3); Mean Corpuscular Volume 88.3 fL (83.0-100.0); Platelet Count 254 K/mcL (140-400); Red Blood Count 3.25 M/mcL (3.82-4.97); Red Cell Distribution Width 13.1 % (11.5-14.5); White Blood Count 10.1 K/mcL (4.3-11.1)
[2020-06-19] MEDS ORDERED: *HR* Dextrose 50 % in Water (Vial) 50 ML VIAL IVP PRN (13:43)
[2020-06-19] MEDS ORDERED: Dextrose Gel 15 GM/37.5 ML TUBE PO PRN ×2 (13:43)
[2020-06-19] MEDS ORDERED: Albuterol 2.5 MG/3 ML NEBULIZER IH PRN (13:43)
[2020-06-19] MEDS ORDERED: Naloxone 0.4 MG/ML INJ IVP PRN (13:43)
[2020-06-19] MEDS: MethylPREDNISolone 40 MG/ML VIAL IVP SCH ×2 (15:56→22:42)
[2020-06-19] MEDS: Heparin 25,000 UNIT/250 ML D5W 25,000 UNIT/250 ML IV.SOLN IVC SCH (19:00)
[2020-06-20] MEDS: Ipratropium/Albuterol Neb 3 ML IH SCH ×6 (00:31→20:08)
[2020-06-20 00:41] LABS: Basophils % 0.1 %; Hemoglobin 9.4 g/dL (11.5-15.4); Immature Granulocytes % 0.6 % (0-4); Lymphocytes # 0.4 K/mcL (0.6-4.6); Lymphocytes % 3.8 %; Mean Corpuscular HGB Conc 32.4 g/dL (31.6-35.5); Mean Corpuscular Volume 86.3 fL (83.0-100.0); Mean Platelet Volume 9.9 fL (9.4-12.4); Monocytes # 0.5 K/mcL (0.0-1.3); Monocytes % 4.7 %; Neutrophils # 9.9 K/mcL (1.6-8.9); Platelet Count 282 K/mcL (140-400); Red Blood Count 3.36 M/mcL (3.82-4.97); Red Cell Distribution Width 13.2 % (11.5-14.5); Segmented Neutrophils % 90.8 %; White Blood Count 10.9 K/mcL (4.3-11.1)
[2020-06-20 00:52] LABS: BUN/Creatinine Ratio 36 (6-26); Blood Urea Nitrogen 22 mg/dL (8-23); Calcium 8.5 mg/dL (8.6-10.3); Carbon Dioxide 27 mEq/L (23-29); Chloride 97 mEq/L (98-107); Glucose 184 mg/dL (70-105); Osmolality,Calculated 288 (280-300); Potassium 3.8 mEq/L (3.5-5.1); Sodium 135 mEq/L (136-145); eGFR For African Americans > 60 (> 60); eGFR For Non-African Americans > 60 (> 60)
[2020-06-20] MEDS: carvediloL 25 MG TABLET PO SCH ×2 (07:51→17:12)
[2020-06-20] MEDS: Loratadine 10 MG TABLET PO SCH (07:51)
[2020-06-20] MEDS: Aspirin Enteric Coated 81 MG Tablet PO SCH (07:51)
[2020-06-20] MEDS: Isosorbide MONOnitrate (24 HR) 30 MG TAB.ER.24H PO SCH (07:51)
[2020-06-20] MEDS: Heparin 25,000 UNIT/250 ML D5W 25,000 UNIT/250 ML IV.SOLN IVC SCH ×2 (07:51→17:12)
[2020-06-20] MEDS: levoFLOXacin 750 MG/150 ML 750 MG/150 ML BAG IVPB SCH (07:52)
[2020-06-20] MEDS: lisinopriL 10 MG TABLET PO SCH (07:52)
[2020-06-20] MEDS: MethylPREDNISolone 40 MG/ML VIAL IVP SCH ×2 (07:52→17:12)
[2020-06-20] MEDS: Insulin LISPRO 300 UNITS/3 ML VIAL SQ SCH ×3 (08:01→17:13)
[2020-06-20] MEDS: Furosemide 40 MG/4 ML VIAL IVP SCH ×2 (10:30→19:51)
[2020-06-21] MEDS: Ipratropium/Albuterol Neb 3 ML IH SCH ×7 (00:11→23:45)
[2020-06-21 06:46] LABS: Basophils % 0.1 %; Hematocrit 31.3 % (35.3-44.9); Immature Granulocytes % 0.8 % (0-4); Lymphocytes # 0.6 K/mcL (0.6-4.6); Lymphocytes % 6.7 %; Mean Corpuscular HGB Conc 31.9 g/dL (31.6-35.5); Mean Corpuscular Hemoglobin 27.6 pg (28.0-33.3); Mean Corpuscular Volume 86.5 fL (83.0-100.0); Mean Platelet Volume 10.1 fL (9.4-12.4); Monocytes # 0.4 K/mcL (0.0-1.3); Monocytes % 5.2 %; Neutrophils # 7.2 K/mcL (1.6-8.9); Platelet Count 304 K/mcL (140-400); Red Blood Count 3.62 M/mcL (3.82-4.97); Red Cell Distribution Width 13.2 % (11.5-14.5); Segmented Neutrophils % 87.2 %; White Blood Count 8.3 K/mcL (4.3-11.1)
[2020-06-21 06:50] LABS: VBG HCO3 31 mEq/L (21-27); VBG PCO2 55 mmHg (41-51); VBG PH 7.36 pH Units (7.32-7.42); VBG PO2 75 mmHg (25-50)
[2020-06-21 07:09] LABS: % Iron Saturation 8 % (15-50); BUN/Creatinine Ratio 37 (6-26); Blood Urea Nitrogen 23 mg/dL (8-23); Calcium 8.5 mg/dL (8.6-10.3); Carbon Dioxide 29 mEq/L (23-29); Chloride 95 mEq/L (98-107); Glucose 196 mg/dL (70-105); Iron 35 mcg/dL (50-170); Magnesium 1.7 mg/dL (1.6-2.6); Osmolality,Calculated 289 (280-300); Potassium 3.8 mEq/L (3.5-5.1); Sodium 135 mEq/L (136-145); Transferrin 304 mg/dL (203-362); eGFR For African Americans > 60 (> 60); eGFR For Non-African Americans > 60 (> 60)
[2020-06-21 07:26] LABS: Ferritin 28 ng/mL (10-120)
[2020-06-21 07:32] LABS: Folate > 22.3 ng/mL (3.0-16.0); Vitamin B12 228 pg/mL (250-1100)
[2020-06-21] MEDS ORDERED: Cyanocobalamin (B-12) 1,000 MCG/ML VIAL SQ ONE (07:45)
[2020-06-21] MEDS ORDERED: Iron Sucrose Complex 250 MG in 0.9 % Sodium Chloride 250 ML IVPB ONE (07:46)
[2020-06-21] MEDS: predniSONE 20 MG TABLET PO SCH (08:24)
[2020-06-21] MEDS: lisinopriL 10 MG TABLET PO SCH (08:24)
[2020-06-21] MEDS: Isosorbide MONOnitrate (24 HR) 30 MG TAB.ER.24H PO SCH (08:24)
[2020-06-21] MEDS: Aspirin Enteric Coated 81 MG Tablet PO SCH (08:24)
[2020-06-21] MEDS: Loratadine 10 MG TABLET PO SCH (08:25)
[2020-06-21] MEDS: levoFLOXacin 750 MG/150 ML 750 MG/150 ML BAG IVPB SCH (08:25)
[2020-06-21] MEDS: Insulin LISPRO 300 UNITS/3 ML VIAL SQ SCH ×4 (08:27→20:06)
[2020-06-21] MEDS ORDERED: Furosemide 40 MG/4 ML VIAL IVP ONE (09:00)
[2020-06-21] MEDS: carvediloL 25 MG TABLET PO SCH ×2 (09:09→17:18)
[2020-06-21 09:16] LABS: Mycoplasma pneumoniae IgG 0.76 U/L (<=0.09)
[2020-06-21] MEDS: Magnesium Oxide 400 MG TABLET PO SCH ×2 (10:37→19:42)
[2020-06-21] MEDS ORDERED: Insulin DETEMIR 100 UNIT/ML X5UNITS SQ ONE (15:49)
[2020-06-21] MEDS: Heparin 25,000 UNIT/250 ML D5W 25,000 UNIT/250 ML IV.SOLN IVC SCH (19:53)
[2020-06-22] MEDS: Ipratropium/Albuterol Neb 3 ML IH SCH ×6 (03:32→23:13)
[2020-06-22 07:01] LABS: Eosinophils # 0.1 K/mcL (0.0-0.6); Eosinophils % 0.8 %; Hematocrit 30.6 % (35.3-44.9); Hemoglobin 9.7 g/dL (11.5-15.4); Immature Granulocytes % 0.5 % (0-4); Lymphocytes # 2.2 K/mcL (0.6-4.6); Lymphocytes % 25.2 %; Mean Corpuscular HGB Conc 31.7 g/dL (31.6-35.5); Mean Corpuscular Hemoglobin 28.3 pg (28.0-33.3); Mean Corpuscular Volume 89.2 fL (83.0-100.0); Mean Platelet Volume 9.9 fL (9.4-12.4); Monocytes # 0.6 K/mcL (0.0-1.3); Monocytes % 7.4 %; Neutrophils # 5.7 K/mcL (1.6-8.9); Platelet Count 266 K/mcL (140-400); Red Blood Count 3.43 M/mcL (3.82-4.97); Red Cell Distribution Width 13.2 % (11.5-14.5); Segmented Neutrophils % 66.1 %; White Blood Count 8.6 K/mcL (4.3-11.1)
[2020-06-22 07:20] LABS: BUN/Creatinine Ratio 36 (6-26); Blood Urea Nitrogen 20 mg/dL (8-23); Calcium 8.2 mg/dL (8.6-10.3); Carbon Dioxide 30 mEq/L (23-29); Chloride 99 mEq/L (98-107); Glucose 107 mg/dL (70-105); Osmolality,Calculated 283 (280-300); Potassium 3.5 mEq/L (3.5-5.1); Sodium 135 mEq/L (136-145); eGFR For African Americans > 60 (> 60); eGFR For Non-African Americans > 60 (> 60)
[2020-06-22] MEDS: Isosorbide MONOnitrate (24 HR) 30 MG TAB.ER.24H PO SCH (07:56)
[2020-06-22] MEDS: Loratadine 10 MG TABLET PO SCH (07:56)
[2020-06-22] MEDS: lisinopriL 10 MG TABLET PO SCH (07:56)
[2020-06-22] MEDS: Aspirin Enteric Coated 81 MG Tablet PO SCH (07:56)
[2020-06-22] MEDS: predniSONE 20 MG TABLET PO SCH (07:57)
[2020-06-22] MEDS: Cyanocobalamin (B-12) 1,000 MCG TABLET PO SCH (07:57)
[2020-06-22] MEDS: carvediloL 25 MG TABLET PO SCH ×2 (07:57→16:48)
[2020-06-22 07:58] LABS: Magnesium 1.9 mg/dL (1.6-2.6)
[2020-06-22] MEDS: Insulin DETEMIR 100 UNIT/ML X5UNITS SQ SCH (07:58)
[2020-06-22] MEDS: levoFLOXacin 750 MG/150 ML 750 MG/150 ML BAG IVPB SCH (07:58)
[2020-06-22] MEDS: Insulin LISPRO 300 UNITS/3 ML VIAL SQ SCH ×4 (07:58→21:32)
[2020-06-22] MEDS ORDERED: Nitroglycerin 1,000 MCG/10 ML VIAL IV ONE (08:48)
[2020-06-22] MEDS ORDERED: 0.9 % Sodium Chloride 2,000 ML ONE (08:48)
[2020-06-22] MEDS ORDERED: *HR* Heparin 10,000 UNIT/10 ML VIAL ONE (08:48)
[2020-06-22] MEDS ORDERED: Heparin 1,000 UNITS/500 mL 500 ML ONE (08:48)
[2020-06-22] MEDS ORDERED: ISOVUE-370 200 ML INFUS..BTL ONE ×2 (08:48→08:49)
[2020-06-22] MEDS ORDERED: *HR* Midazolam HCl 2 MG/2 ML VIAL ONE (09:15)
[2020-06-22] MEDS ORDERED: *HR* FentaNYL (PF) 100 MCG/2 ML VIAL ONE (09:16)
[2020-06-22] MEDS ORDERED: 0.9 % Sodium Chloride 1,000 ML IVC SCH (10:15)
[2020-06-22] MEDS: *HR* Heparin 5,000 UNIT/ML VIAL SQ SCH (21:33)
[2020-06-23] MEDS: Ipratropium/Albuterol Neb 3 ML IH SCH ×5 (03:18→15:53)
[2020-06-23 05:44] LABS: Basophils % 0.1 %; Eosinophils # 0.1 K/mcL (0.0-0.6); Eosinophils % 0.9 %; Hematocrit 32.2 % (35.3-44.9); Hemoglobin 10.1 g/dL (11.5-15.4); Immature Granulocytes % 0.9 % (0-4); Lymphocytes % 29.2 %; Mean Corpuscular HGB Conc 31.4 g/dL (31.6-35.5); Mean Corpuscular Hemoglobin 26.9 pg (28.0-33.3); Mean Corpuscular Volume 85.6 fL (83.0-100.0); Mean Platelet Volume 9.6 fL (9.4-12.4); Monocytes # 0.5 K/mcL (0.0-1.3); Monocytes % 6.6 %; Neutrophils # 4.3 K/mcL (1.6-8.9); Platelet Count 287 K/mcL (140-400); Red Blood Count 3.76 M/mcL (3.82-4.97); Red Cell Distribution Width 13.4 % (11.5-14.5); Segmented Neutrophils % 62.3 %; White Blood Count 6.8 K/mcL (4.3-11.1)
[2020-06-23 06:01] LABS: BUN/Creatinine Ratio 36 (6-26); Blood Urea Nitrogen 18 mg/dL (8-23); Calcium 9.3 mg/dL (8.6-10.3); Carbon Dioxide 26 mEq/L (23-29); Chloride 101 mEq/L (98-107); Glucose 106 mg/dL (70-105); Magnesium 1.8 mg/dL (1.6-2.6); Osmolality,Calculated 280 (280-300); Potassium 4.2 mEq/L (3.5-5.1); Sodium 134 mEq/L (136-145); eGFR For African Americans > 60 (> 60); eGFR For Non-African Americans > 60 (> 60)
[2020-06-23] MEDS: *HR* Heparin 5,000 UNIT/ML VIAL SQ SCH ×2 (06:19→13:47)
[2020-06-23] MEDS: Aspirin Enteric Coated 81 MG Tablet PO SCH (07:44)
[2020-06-23] MEDS: carvediloL 25 MG TABLET PO SCH (07:44)
[2020-06-23] MEDS: Loratadine 10 MG TABLET PO SCH (07:44)
[2020-06-23] MEDS: Isosorbide MONOnitrate (24 HR) 30 MG TAB.ER.24H PO SCH (07:44)
[2020-06-23] MEDS: predniSONE 20 MG TABLET PO SCH (07:45)
[2020-06-23] MEDS: Cyanocobalamin (B-12) 1,000 MCG TABLET PO SCH (07:45)
[2020-06-23] MEDS: lisinopriL 10 MG TABLET PO SCH (07:45)
[2020-06-23] MEDS: Insulin DETEMIR 100 UNIT/ML X5UNITS SQ SCH (07:45)
[2020-06-23] MEDS: levoFLOXacin 750 MG/150 ML 750 MG/150 ML BAG IVPB SCH (07:45)
[2020-06-23] MEDS: Insulin LISPRO 300 UNITS/3 ML VIAL SQ SCH ×2 (07:46→12:06)
[2020-06-23] MEDS ORDERED: Furosemide 20 MG TABLET PO SCH (09:00)
[2020-06-23 16:03] VITALS: BP 115/68
[2020-06-24] MEDS ORDERED: levoFLOXacin 750 MG TABLET PO SCH (09:00)
== END 2020-06-23 17:28 | disposition home or self-care (01) | DRG 193 ==
LOC: CDU → SUATTDRO 16:00 → ICNU 16:03 → 2NNU 06-19 14:56
PROVIDERS: ADMIT Family Medicine; ATTEND Pharmacist

== ENCOUNTER 2020-07-26 06:11 | Inpatient (IN) ==
[2020-07-26] MEDS ORDERED: Naloxone 0.4 MG/ML INJ IVP PRN (09:59)
[2020-07-26] MEDS ORDERED: Furosemide 40 MG/4 ML VIAL IVP ONE (10:02)
[2020-07-26] MEDS ORDERED: Artificial Tears SOLN 15 ML BOTTLE BOTH EYES PRN (10:04)
[2020-07-26] MEDS ORDERED: Dextrose Gel 15 GM/37.5 ML TUBE PO PRN ×2 (10:05)
[2020-07-26] MEDS ORDERED: *HR* Dextrose 50 % in Water (Vial) 50 ML VIAL IVP PRN (10:05)
[2020-07-26] MEDS ORDERED: D5% in Water 1,000 ML IVC PRN (10:05)
[2020-07-26] MEDS ORDERED: Pantoprazole 40 MG VIAL IVP SCH ×2 (10:15→18:00)
[2020-07-26] MEDS: Chlorhexidine Rinse 15 ML MOUTHWASH MM SCH ×2 (10:24→20:36)
[2020-07-26] MEDS: Insulin LISPRO 300 UNITS/3 ML VIAL SQ SCH ×3 (10:25→23:53)
[2020-07-26 10:26] LABS: Adenovirus Not Detected (Not Detect); Bordetella Pertussis Not Detected (Not Detect); Chlamydophila pneumoniae Not Detected (Not Detect); Coronavirus 229E Not Detected (Not Detect); Coronavirus HKU1 Not Detected (Not Detect); Coronavirus NL63 Not Detected (Not Detect); Coronavirus OC43 Not Detected (Not Detect); Human Metapneumovirus Not Detected (Not Detect); Human Rhinovirus/Enterovirus Not Detected (Not Detect); Influenza A Subtype 2009 H1 Not Detected (Not Detect); Influenza B Not Detected (Not Detect); Mycoplasma pneumoniae Not Detected (Not Detect); Parainfluenza Virus 1 Not Detected (Not Detect); Parainfluenza Virus 2 Not Detected (Not Detect); Parainfluenza Virus 3 Not Detected (Not Detect); Parainfluenza Virus 4 Not Detected (Not Detect); Respiratory Syncytial Virus Not Detected (Not Detect); SARS-CoV-2 Not Detected (Not Detect)
[2020-07-26] MEDS: FentaNYL (PF) 1,000 MCG/100 ML IV.SOLN IVC SCH ×2 (10:30→15:27)
[2020-07-26] MEDS ORDERED: Pantoprazole 40 MG in 0.9 % Sodium Chloride Mini Bag 100 ML IVC SCH (10:30)
[2020-07-26] MEDS: Ipratropium/Albuterol Neb 3 ML IH SCH ×4 (11:20→23:42)
[2020-07-26] MEDS: Budesonide/Formoterol 160/4.5 1 PUFF INH IH SCH ×2 (11:24→20:00)
[2020-07-26 11:26] LABS: Hematocrit 32.6 % (35.3-44.9); Hemoglobin 10.1 g/dL (11.5-15.4)
[2020-07-26] MEDS: Artificial Tears SOLN 15 ML BOTTLE BOTH EYES SCH ×4 (12:25→23:52)
[2020-07-26] MEDS: Piperacillin/Tazobactam 3.375 GM in 0.9 % Sodium Chloride Mini Bag 100 ML IVPB SCH ×2 (15:24→23:42)
[2020-07-26] MEDS: MethylPREDNISolone 40 MG/ML VIAL IVP SCH (16:25)
[2020-07-26] MEDS: Pantoprazole 40 MG VIAL IVP SCH (16:25)
[2020-07-26 17:06] LABS: Hematocrit 31.2 % (35.3-44.9); Hemoglobin 10.2 g/dL (11.5-15.4)
[2020-07-26 17:18] LABS: VBG Ionized Calcium 0.97 mmol/L (1.15-1.35)
[2020-07-26 17:28] LABS: BUN/Creatinine Ratio 25 (6-26); Blood Urea Nitrogen 10 mg/dL (8-23); Calcium 7.9 mg/dL (8.6-10.3); Carbon Dioxide 25 mEq/L (23-29); Chloride 93 mEq/L (98-107); Glucose 142 mg/dL (70-105); Magnesium 2.3 mg/dL (1.6-2.6); Osmolality,Calculated 265 (280-300); Phosphorous 3.8 mg/dL (2.7-4.5); Potassium 4.1 mEq/L (3.5-5.1); Sodium 127 mEq/L (136-145); eGFR For African Americans > 60 (> 60); eGFR For Non-African Americans > 60 (> 60)
[2020-07-26] MEDS: Calcium Gluconate 1gm/50mL 1 GM/50 ML BAG IVPB SCH ×2 (17:39→17:56)
[2020-07-26 23:30] LABS: Hematocrit 29.5 % (35.3-44.9); Hemoglobin 9.5 g/dL (11.5-15.4)
[2020-07-27] MEDS: FentaNYL (PF) 1,000 MCG/100 ML IV.SOLN IVC SCH (01:04)
[2020-07-27] MEDS: Ipratropium/Albuterol Neb 3 ML IH SCH ×6 (03:33→23:25)
[2020-07-27] MEDS: Artificial Tears SOLN 15 ML BOTTLE BOTH EYES SCH ×6 (04:38→23:37)
[2020-07-27 04:52] LABS: ABG Base Excess 6 mEq/L (-2 to 3); ABG HCO3 32 mEq/L (21-27); ABG Oxygen Saturation 97 % (95-98); ABG PCO2 49 mmHg (35-45); ABG PH 7.42 pH Units (7.32-7.45); ABG PO2 89 mmHg (85-104); ABG TCO2 33 mEq/L (20-26); Blood Gas VT 550 cc
[2020-07-27] MEDS: MethylPREDNISolone 40 MG/ML VIAL IVP SCH ×3 (05:18→18:00)
[2020-07-27] MEDS: Pantoprazole 40 MG VIAL IVP SCH ×3 (05:18→18:00)
[2020-07-27 05:23] LABS: Basophils % 0.1 %; Eosinophils % 0.2 %; Hematocrit 29.9 % (35.3-44.9); Hemoglobin 9.4 g/dL (11.5-15.4); Immature Granulocytes % 0.7 % (0-4); Lymphocytes # 0.9 K/mcL (0.6-4.6); Lymphocytes % 7.5 %; Mean Corpuscular HGB Conc 31.4 g/dL (31.6-35.5); Mean Corpuscular Hemoglobin 27.8 pg (28.0-33.3); Mean Corpuscular Volume 88.5 fL (83.0-100.0); Mean Platelet Volume 9.1 fL (9.4-12.4); Monocytes % 8.6 %; Platelet Count 296 K/mcL (140-400); Red Blood Count 3.38 M/mcL (3.82-4.97); Red Cell Distribution Width 14.2 % (11.5-14.5); Segmented Neutrophils % 82.9 %; White Blood Count 12.1 K/mcL (4.3-11.1)
[2020-07-27 05:41] LABS: BUN/Creatinine Ratio 22 (6-26); Blood Urea Nitrogen 12 mg/dL (8-23); Calcium 8.5 mg/dL (8.6-10.3); Carbon Dioxide 30 mEq/L (23-29); Chloride 96 mEq/L (98-107); Glucose 136 mg/dL (70-105); Osmolality,Calculated 278 (280-300); Potassium 4.2 mEq/L (3.5-5.1); Sodium 133 mEq/L (136-145); eGFR For African Americans > 60 (> 60); eGFR For Non-African Americans > 60 (> 60)
[2020-07-27] MEDS: Insulin LISPRO 300 UNITS/3 ML VIAL SQ SCH ×4 (05:49→23:46)
[2020-07-27] MEDS: Budesonide/Formoterol 160/4.5 1 PUFF INH IH SCH ×2 (07:16→19:54)
[2020-07-27] MEDS: Piperacillin/Tazobactam 3.375 GM in 0.9 % Sodium Chloride Mini Bag 100 ML IVPB SCH ×2 (07:27→16:25)
[2020-07-27] MEDS: Chlorhexidine Rinse 15 ML MOUTHWASH MM SCH ×2 (08:39→19:52)
[2020-07-27] MEDS ORDERED: Furosemide 20 MG/2 ML VIAL IVP SCH (10:00)
[2020-07-27] MEDS ORDERED: carvediloL 6.25 MG TABLET PO SCH (17:00)
[2020-07-27] MEDS ORDERED: Artificial Tears SOLN 15 ML BOTTLE BOTH EYES PRN (17:55)
[2020-07-27] MEDS ORDERED: Naloxone 0.4 MG/ML INJ IVP PRN (17:55)
[2020-07-27] MEDS ORDERED: *HR* Dextrose 50 % in Water (Vial) 50 ML VIAL IVP PRN (17:55)
[2020-07-27] MEDS ORDERED: D5% in Water 1,000 ML IVC PRN (17:55)
[2020-07-27] MEDS ORDERED: Dextrose Gel 15 GM/37.5 ML TUBE PO PRN ×2 (17:55)
[2020-07-27] MEDS: Magnesium Oxide 400 MG TABLET PO SCH (19:52)
[2020-07-28] MEDS: Artificial Tears SOLN 15 ML BOTTLE BOTH EYES SCH ×2 (03:14→08:31)
[2020-07-28] MEDS: Ipratropium/Albuterol Neb 3 ML IH SCH ×6 (03:48→23:29)
[2020-07-28 04:15] LABS: Segmented Neutrophils % 83.4 %
[2020-07-28 04:17] LABS: Hematocrit 30.6 % (35.3-44.9); Hemoglobin 9.7 g/dL (11.5-15.4); Immature Granulocytes % 0.8 % (0-4); Immature Platelets 4.6 % (1.1-6.1); Lymphocytes % 8.4 %; Mean Corpuscular HGB Conc 31.7 g/dL (31.6-35.5); Mean Corpuscular Hemoglobin 27.9 pg (28.0-33.3); Mean Corpuscular Volume 87.9 fL (83.0-100.0); Monocytes # 0.8 K/mcL (0.0-1.3); Monocytes % 7.4 %; Neutrophils # 9.4 K/mcL (1.6-8.9); Platelet Count 299 K/mcL (140-400); Red Blood Count 3.48 M/mcL (3.82-4.97); Red Cell Distribution Width 14.7 % (11.5-14.5); White Blood Count 11.3 K/mcL (4.3-11.1)
[2020-07-28 04:40] LABS: Alanine Aminotransferase 11 Units/L (7-52); Albumin 3.8 g/dL (3.5-5.7); Albumin/Globulin Ratio 1.6 (1.1-2.2); Alkaline Phosphatase 33 Units/L (34-104); Aspartate Amino Transferase 18 Units/L (13-39); BUN/Creatinine Ratio 31 (6-26); Bilirubin,Total 0.2 mg/dL (0.3-1.0); Blood Urea Nitrogen 16 mg/dL (8-23); Calcium 8.9 mg/dL (8.6-10.3); Carbon Dioxide 29 mEq/L (23-29); Chloride 95 mEq/L (98-107); Globulin 2.4 g/dL (2.4-3.5); Glucose 124 mg/dL (70-105); Osmolality,Calculated 277 (280-300); Potassium 4.1 mEq/L (3.5-5.1); Sodium 132 mEq/L (136-145); Total Protein 6.2 g/dL (6.4-8.9); eGFR For African Americans > 60 (> 60); eGFR For Non-African Americans > 60 (> 60)
[2020-07-28] MEDS: Insulin LISPRO 300 UNITS/3 ML VIAL SQ SCH ×4 (05:35→20:08)
[2020-07-28] MEDS: Pantoprazole 40 MG VIAL IVP SCH (05:44)
[2020-07-28] MEDS: MethylPREDNISolone 40 MG/ML VIAL IVP SCH (05:44)
[2020-07-28] MEDS: Budesonide/Formoterol 160/4.5 1 PUFF INH IH SCH ×2 (07:12→19:41)
[2020-07-28] MEDS: Magnesium Oxide 400 MG TABLET PO SCH (08:24)
[2020-07-28] MEDS: Aspirin Enteric Coated 81 MG Tablet PO SCH (08:24)
[2020-07-28] MEDS: Isosorbide MONOnitrate (24 HR) 30 MG TAB.ER.24H PO SCH (08:24)
[2020-07-28] MEDS: Furosemide 20 MG/2 ML VIAL IVP SCH (08:25)
[2020-07-28] MEDS: lisinopriL 10 MG TABLET PO SCH (08:25)
[2020-07-28] MEDS: carvediloL 6.25 MG TABLET PO SCH ×2 (08:25→17:20)
[2020-07-28] MEDS: Chlorhexidine Rinse 15 ML MOUTHWASH MM SCH (08:31)
[2020-07-28] MEDS: predniSONE 20 MG TABLET PO SCH (12:24)
[2020-07-29 03:06] LABS: Basophils % 0.2 %; Hematocrit 30.7 % (35.3-44.9); Hemoglobin 9.9 g/dL (11.5-15.4); Immature Granulocytes % 1.3 % (0-4); Lymphocytes # 0.9 K/mcL (0.6-4.6); Lymphocytes % 9.5 %; Mean Corpuscular HGB Conc 32.2 g/dL (31.6-35.5); Mean Corpuscular Hemoglobin 28.4 pg (28.0-33.3); Mean Corpuscular Volume 88.2 fL (83.0-100.0); Mean Platelet Volume 9.6 fL (9.4-12.4); Monocytes % 9.7 %; Neutrophils # 7.8 K/mcL (1.6-8.9); Platelet Count 323 K/mcL (140-400); Red Blood Count 3.48 M/mcL (3.82-4.97); Red Cell Distribution Width 14.6 % (11.5-14.5); Segmented Neutrophils % 79.3 %; White Blood Count 9.8 K/mcL (4.3-11.1)
[2020-07-29 03:17] LABS: BUN/Creatinine Ratio 42 (6-26); Blood Urea Nitrogen 19 mg/dL (8-23); Calcium 9.3 mg/dL (8.6-10.3); Carbon Dioxide 30 mEq/L (23-29); Chloride 94 mEq/L (98-107); Glucose 139 mg/dL (70-105); Osmolality,Calculated 279 (280-300); Potassium 3.9 mEq/L (3.5-5.1); Sodium 132 mEq/L (136-145); eGFR For African Americans > 60 (> 60); eGFR For Non-African Americans > 60 (> 60)
[2020-07-29] MEDS: Ipratropium/Albuterol Neb 3 ML IH SCH ×6 (04:03→23:25)
[2020-07-29] MEDS: Budesonide/Formoterol 160/4.5 1 PUFF INH IH SCH ×2 (07:27→19:42)
[2020-07-29] MEDS: Insulin LISPRO 300 UNITS/3 ML VIAL SQ SCH ×4 (07:50→20:45)
[2020-07-29] MEDS: Isosorbide MONOnitrate (24 HR) 30 MG TAB.ER.24H PO SCH (07:54)
[2020-07-29] MEDS: Aspirin Enteric Coated 81 MG Tablet PO SCH (07:54)
[2020-07-29] MEDS: Furosemide 20 MG/2 ML VIAL IVP SCH (07:55)
[2020-07-29] MEDS: carvediloL 6.25 MG TABLET PO SCH ×2 (07:55→16:39)
[2020-07-29] MEDS: lisinopriL 10 MG TABLET PO SCH (07:55)
[2020-07-29] MEDS: Magnesium Oxide 400 MG TABLET PO SCH (07:55)
[2020-07-29] MEDS: predniSONE 20 MG TABLET PO SCH (07:55)
[2020-07-29 08:13] LABS: ABG Base Excess 4 mEq/L (-2 to 3); ABG HCO3 31 mEq/L (21-27); ABG Oxygen Saturation 98 % (95-98); ABG PCO2 54 mmHg (35-45); ABG PH 7.36 pH Units (7.32-7.45); ABG PO2 111 mmHg (85-104); ABG TCO2 33 mEq/L (20-26); Blood Gas Modality AF; Blood Gas VT 550 cc
[2020-07-29] MEDS: Gabapentin 300 MG CAPSULE PO SCH (20:45)
[2020-07-29] MEDS ORDERED: NON-FORMULARY MEDICATION 1 EACH EACH (Carvedilol [Carvedilol] 12.5 MG) PO SCH (21:00)
[2020-07-30] MEDS: Ipratropium/Albuterol Neb 3 ML IH SCH ×4 (03:32→15:09)
[2020-07-30 06:24] LABS: Basophils % 0.2 %; Eosinophils # 0.1 K/mcL (0.0-0.6); Eosinophils % 1.2 %; Hematocrit 34.6 % (35.3-44.9); Immature Granulocytes % 2.1 % (0-4); Lymphocytes % 21.4 %; Mean Corpuscular HGB Conc 31.8 g/dL (31.6-35.5); Mean Corpuscular Hemoglobin 28.3 pg (28.0-33.3); Mean Corpuscular Volume 88.9 fL (83.0-100.0); Mean Platelet Volume 9.5 fL (9.4-12.4); Monocytes # 0.7 K/mcL (0.0-1.3); Monocytes % 7.8 %; Neutrophils # 6.4 K/mcL (1.6-8.9); Platelet Count 341 K/mcL (140-400); Red Blood Count 3.89 M/mcL (3.82-4.97); Red Cell Distribution Width 14.6 % (11.5-14.5); Segmented Neutrophils % 67.3 %; White Blood Count 9.5 K/mcL (4.3-11.1)
[2020-07-30 06:43] LABS: BUN/Creatinine Ratio 40 (6-26); Blood Urea Nitrogen 20 mg/dL (8-23); Calcium 9.5 mg/dL (8.6-10.3); Carbon Dioxide 31 mEq/L (23-29); Chloride 96 mEq/L (98-107); Glucose 117 mg/dL (70-105); Osmolality,Calculated 284 (280-300); Potassium 3.6 mEq/L (3.5-5.1); Sodium 135 mEq/L (136-145); eGFR For African Americans > 60 (> 60); eGFR For Non-African Americans > 60 (> 60)
[2020-07-30] MEDS ORDERED: carvediloL 6.25 MG TABLET PO SCH (08:00)
[2020-07-30] MEDS ORDERED: Furosemide 20 MG TABLET PO SCH (09:00)
[2020-07-30] MEDS ORDERED: Loratadine 10 MG TABLET PO SCH (09:00)
[2020-07-30] MEDS ORDERED: Multivit/Ca/Min/Fe/FA 1 TAB TABLET PO SCH (09:00)
[2020-07-30] MEDS: predniSONE 20 MG TABLET PO SCH (09:46)
[2020-07-30] MEDS: Aspirin Enteric Coated 81 MG Tablet PO SCH (09:46)
[2020-07-30] MEDS: Isosorbide MONOnitrate (24 HR) 30 MG TAB.ER.24H PO SCH (09:46)
[2020-07-30] MEDS: Magnesium Oxide 400 MG TABLET PO SCH (09:46)
[2020-07-30] MEDS: Insulin LISPRO 300 UNITS/3 ML VIAL SQ SCH (09:47)
[2020-07-30] MEDS: lisinopriL 10 MG TABLET PO SCH (09:48)
[2020-07-30] MEDS: Gabapentin 300 MG CAPSULE PO SCH (09:53)
[2020-07-30] MEDS: Budesonide/Formoterol 160/4.5 1 PUFF INH IH SCH (11:03)
[2020-07-30 15:04] VITALS: BP 116/60
== END 2020-07-30 16:30 | disposition home or self-care (01) | DRG 280 ==
LOC: SUATTDRO 08:59 → ICNU 08:59 → 2ANU 07-28 10:19
PROVIDERS: ADMIT Internal Medicine; ATTEND Internal Medicine

== ENCOUNTER 2021-09-13 05:17 | Observation (INO) ==
[2021-09-13] MEDS ORDERED: Naloxone 0.4 MG/ML INJ IVP PRN (08:15)
[2021-09-13] MEDS ORDERED: Mag Hydrox/Al Hydrox/Simeth 30 ML UDC PO PRN (08:15)
[2021-09-13] MEDS ORDERED: Acetaminophen 325 MG TABLET PO PRN (08:15)
[2021-09-13] MEDS ORDERED: Melatonin 3 MG TABLET PO PRN (08:15)
[2021-09-13] MEDS ORDERED: *HR* OxyCODONE Immed Rel 5 MG TABLET PO PRN (08:15)
[2021-09-13] MEDS ORDERED: Ondansetron ODT 4 MG TAB.RAPDIS SL PRN (08:15)
[2021-09-13] MEDS ORDERED: Albuterol 2.5 MG/3 ML NEBULIZER IH PRN (08:25)
[2021-09-13] MEDS ORDERED: *HR* Dextrose 50 % in Water (Syg) 50 ML SYRINGE IVP PRN (08:28)
[2021-09-13] MEDS ORDERED: D5% in Water 1,000 ML IVC PRN (08:28)
[2021-09-13] MEDS ORDERED: Dextrose Gel 15 GM/37.5 ML TUBE PO PRN ×2 (08:28)
[2021-09-13] MEDS ORDERED: Nitroglycerin 0.4 MG TAB.SUBL SL PRN (10:03)
[2021-09-13] MEDS ORDERED: Loratadine 10 MG TABLET PO PRN (10:03)
[2021-09-13] MEDS ORDERED: NON-FORMULARY MEDICATION 1 EACH EACH (Fluticasone/Umeclidin/Vilanter [Trelegy Ellipta 100- IH SCH (10:15)
[2021-09-13] MEDS ORDERED: MAGNESIUM CHLORIDE 71.5 MG PO SCH (10:15)
[2021-09-13] MEDS: Ipratropium/Albuterol Neb 3 ML IH SCH ×4 (10:56→23:20)
[2021-09-13 11:15] LABS: Adenovirus Not Detected (Not Detect); Bordetella Pertussis Not Detected (Not Detect); Chlamydophila pneumoniae Not Detected (Not Detect); Coronavirus 229E Not Detected (Not Detect); Coronavirus HKU1 Not Detected (Not Detect); Coronavirus NL63 Not Detected (Not Detect); Coronavirus OC43 Not Detected (Not Detect); Human Metapneumovirus Not Detected (Not Detect); Human Rhinovirus/Enterovirus Not Detected (Not Detect); Influenza A Subtype 2009 H1 Not Detected (Not Detect); Influenza B Not Detected (Not Detect); Mycoplasma pneumoniae Not Detected (Not Detect); Parainfluenza Virus 1 Not Detected (Not Detect); Parainfluenza Virus 2 Not Detected (Not Detect); Parainfluenza Virus 3 Not Detected (Not Detect); Parainfluenza Virus 4 Not Detected (Not Detect); Respiratory Syncytial Virus Not Detected (Not Detect); SARS-CoV-2 Not Detected (Not Detect)
[2021-09-13] MEDS: lisinopriL 10 MG TABLET PO SCH (11:24)
[2021-09-13] MEDS: Isosorbide MONOnitrate (24 HR) 30 MG TAB.ER.24H PO SCH (11:25)
[2021-09-13] MEDS: carvediloL 6.25 MG TABLET PO SCH ×2 (11:25→16:46)
[2021-09-13] MEDS: Cyanocobalamin (B-12) 1,000 MCG TABLET PO SCH (11:25)
[2021-09-13] MEDS: Furosemide 20 MG TABLET PO SCH (11:25)
[2021-09-13] MEDS: Folic Acid 1 MG TABLET PO SCH (11:25)
[2021-09-13] MEDS: Magnesium Oxide 400 MG TABLET PO SCH ×3 (11:25→20:01)
[2021-09-13] MEDS: Aspirin Enteric Coated 81 MG Tablet PO SCH (11:28)
[2021-09-13] MEDS: Insulin LISPRO 300 UNITS/3 ML VIAL SUBQ SCH ×3 (11:29→20:02)
[2021-09-13] MEDS ORDERED: Gabapentin 300 MG CAPSULE PO SCH (13:00)
[2021-09-13] MEDS: *HR* Heparin 5,000 UNIT/ML VIAL SQ SCH (16:46)
[2021-09-13] MEDS: Gabapentin 300 MG CAPSULE PO SCH (20:01)
[2021-09-13] MEDS: Budesonide/Formoterol 160/4.5 1 PUFF INH IH SCH (20:11)
[2021-09-14 02:56] LABS: Basophils % 0.2 %; Hematocrit 27.7 % (35.3-44.9); Hemoglobin 8.7 g/dL (11.5-15.4); Immature Granulocytes % 0.6 % (0-4); Lymphocytes # 0.5 K/mcL (0.6-4.6); Mean Corpuscular HGB Conc 31.4 g/dL (31.6-35.5); Mean Corpuscular Hemoglobin 28.3 pg (28.0-33.3); Mean Corpuscular Volume 90.2 fL (83.0-100.0); Mean Platelet Volume 9.2 fL (9.4-12.4); Monocytes # 0.8 K/mcL (0.0-1.3); Monocytes % 6.3 %; Neutrophils # 11.3 K/mcL (1.6-8.9); Platelet Count 237 K/mcL (140-400); Red Blood Count 3.07 M/mcL (3.82-4.97); Red Cell Distribution Width 13.1 % (11.5-14.5); Segmented Neutrophils % 88.9 %; White Blood Count 12.7 K/mcL (4.3-11.1)
[2021-09-14 03:17] LABS: BUN/Creatinine Ratio 33 (6-26); Blood Urea Nitrogen 29 mg/dL (8-23); Calcium 9.2 mg/dL (8.6-10.3); Carbon Dioxide 29 mEq/L (23-29); Chloride 98 mEq/L (98-107); Glucose 244 mg/dL (70-105); Osmolality,Calculated 294 (280-300); Potassium 4.1 mEq/L (3.5-5.1); Sodium 135 mEq/L (136-145); eGFR For African Americans > 60 (> 60); eGFR For Non-African Americans > 60 (> 60)
[2021-09-14] MEDS: Ipratropium/Albuterol Neb 3 ML IH SCH ×6 (03:47→23:32)
[2021-09-14] MEDS: *HR* Heparin 5,000 UNIT/ML VIAL SQ SCH ×2 (04:54→16:17)
[2021-09-14] MEDS: Budesonide/Formoterol 160/4.5 1 PUFF INH IH SCH ×2 (07:41→20:20)
[2021-09-14] MEDS: Cyanocobalamin (B-12) 1,000 MCG TABLET PO SCH (08:21)
[2021-09-14] MEDS: Folic Acid 1 MG TABLET PO SCH (08:22)
[2021-09-14] MEDS: Magnesium Oxide 400 MG TABLET PO SCH ×3 (08:22→20:29)
[2021-09-14] MEDS: lisinopriL 10 MG TABLET PO SCH (08:22)
[2021-09-14] MEDS: predniSONE 20 MG TABLET PO SCH (08:22)
[2021-09-14] MEDS: Isosorbide MONOnitrate (24 HR) 30 MG TAB.ER.24H PO SCH (08:23)
[2021-09-14] MEDS: Furosemide 20 MG TABLET PO SCH (08:23)
[2021-09-14] MEDS: Gabapentin 300 MG CAPSULE PO SCH ×3 (08:23→20:29)
[2021-09-14] MEDS: carvediloL 6.25 MG TABLET PO SCH ×2 (08:23→16:17)
[2021-09-14] MEDS: Aspirin Enteric Coated 81 MG Tablet PO SCH (08:23)
[2021-09-14] MEDS: cefTRIAXone 1,000 MG in Water for inj. (sterile) 10 ML IVP SCH (08:24)
[2021-09-14] MEDS: Insulin LISPRO 300 UNITS/3 ML VIAL SUBQ SCH ×4 (08:24→20:28)
[2021-09-14] MEDS ORDERED: Azithromycin 500 MG in 0.9 % Sodium Chloride 250 ML IVPB SCH (09:00)
[2021-09-14] MEDS ORDERED: Gabapentin 300 MG CAPSULE PO SCH (09:00)
[2021-09-14] MEDS ORDERED: Isovue-370 500 ML BOTTLE IVP ONE (11:56)
[2021-09-14] MEDS: Doxycycline 100 MG CAPSULE PO SCH ×2 (12:11→23:52)
[2021-09-15 03:10] LABS: Hematocrit 29.4 % (35.3-44.9); Hemoglobin 9.5 g/dL (11.5-15.4); Mean Corpuscular HGB Conc 32.3 g/dL (31.6-35.5); Mean Corpuscular Hemoglobin 29.5 pg (28.0-33.3); Mean Corpuscular Volume 91.3 fL (83.0-100.0); Mean Platelet Volume 9.4 fL (9.4-12.4); Platelet Count 290 K/mcL (140-400); Red Blood Count 3.22 M/mcL (3.82-4.97); Red Cell Distribution Width 13.2 % (11.5-14.5); White Blood Count 11.4 K/mcL (4.3-11.1)
[2021-09-15 03:36] LABS: BUN/Creatinine Ratio 39 (6-26); Blood Urea Nitrogen 32 mg/dL (8-23); Calcium 9.5 mg/dL (8.6-10.3); Carbon Dioxide 32 mEq/L (23-29); Chloride 99 mEq/L (98-107); Glucose 200 mg/dL (70-105); Osmolality,Calculated 297 (280-300); Potassium 4.4 mEq/L (3.5-5.1); Sodium 137 mEq/L (136-145); eGFR For African Americans > 60 (> 60); eGFR For Non-African Americans > 60 (> 60)
[2021-09-15] MEDS: Ipratropium/Albuterol Neb 3 ML IH SCH ×4 (04:02→16:06)
[2021-09-15] MEDS: *HR* Heparin 5,000 UNIT/ML VIAL SQ SCH (05:22)
[2021-09-15] MEDS: Budesonide/Formoterol 160/4.5 1 PUFF INH IH SCH (07:51)
[2021-09-15] MEDS: Insulin LISPRO 300 UNITS/3 ML VIAL SUBQ SCH ×2 (07:55→11:33)
[2021-09-15] MEDS: Gabapentin 300 MG CAPSULE PO SCH (07:57)
[2021-09-15] MEDS: Magnesium Oxide 400 MG TABLET PO SCH (07:57)
[2021-09-15] MEDS: predniSONE 20 MG TABLET PO SCH (07:57)
[2021-09-15] MEDS: Furosemide 20 MG TABLET PO SCH (07:58)
[2021-09-15] MEDS: Folic Acid 1 MG TABLET PO SCH (07:58)
[2021-09-15] MEDS: Aspirin Enteric Coated 81 MG Tablet PO SCH (07:58)
[2021-09-15] MEDS: carvediloL 6.25 MG TABLET PO SCH (07:59)
[2021-09-15] MEDS: Isosorbide MONOnitrate (24 HR) 30 MG TAB.ER.24H PO SCH (07:59)
[2021-09-15] MEDS: lisinopriL 10 MG TABLET PO SCH (07:59)
[2021-09-15] MEDS: Cyanocobalamin (B-12) 1,000 MCG TABLET PO SCH (08:00)
[2021-09-15] MEDS: cefTRIAXone 1,000 MG in Water for inj. (sterile) 10 ML IVP SCH (08:00)
[2021-09-15 11:25] VITALS: BP 114/43; PULSE 70; TEMP 97.8; O2SAT 96
[2021-09-15] MEDS: Doxycycline 100 MG CAPSULE PO SCH (11:52)
== END 2021-09-15 18:17 | disposition home or self-care (01) ==
LOC: 2NENU → SUATTDRO 08:30
PROVIDERS: ADMIT Family Medicine; ATTEND Internal Medicine